=== PATIENT | female | born 1990 | race Caucasian/White ===

== ENCOUNTER 2016-04-30 13:15 | Emergency (ER) | payer BC, OTHER ==
[~2016-04-30] VITALS: Ht 167.6 cm; Wt 123.1 kg
[~2016-04-30 13:15] MED LIST: NAPR-1169 PO
[2016-04-30 13:17] VITALS: TEMP 36.6; Ht 167.6 cm; Wt 123.1 kg
[2016-04-30 14:08] VITALS: O2SAT 98
[2016-04-30] MEDS ORDERED: LABETALOL HCL IV 5 MG/ML 20ML IV STA (14:12)
[2016-04-30] MEDS ORDERED: blood pressure med PO (14:19)
[2016-04-30 14:28] LABS: CALCIUM 9.2 mg/dl (8.5-10.1); CREATININE 0.78 mg/dl (0.60-1.20); POTASSIUM 3.1 mmol/L (3.5-5.1)
[2016-04-30 14:30] LABS: BASO % 0.2 %; BASO ABS # 0.03 K/uL (0-0.2); COMPLETE YES; HEMATOCRIT 38.9 % (37-47); IG% 0.5 %; LYMPH % 18.6 %; LYMPH ABS # 3.13 K/uL (1.2-3.4); MEAN CELL VOLUME 77.3 fL (80-100); MEAN CORPUSCULAR HEMOGLOBIN 26.2 pg (25-34); MEAN CORPUSCULAR HGB CONC 33.9 g/dl (32-36); MEAN PLATELET VOLUME 10.3 fL (7.4-10.4); MONO % 6.4 %; NEUT % 74.3 %; PARTIAL THROMBOPLASTIN RATIO 0.9; PLATELET COUNT 329 K/uL (130-400); PROTHROMBIN TIME (PATIENT) 10.8 SECONDS (9.0-12.0); RED BLOOD COUNT 5.03 M/uL (4.2-5.4); WHITE BLOOD COUNT 16.82 K/uL (4.8-10.8)
--- NOTE | 2016-04-30 14:59 | DIAGNOSTIC IMAGING REPORT ---
HEAD CT NONCONTRAST CT DOSE: 537.48 mGy.cm HISTORY: Mental status change CEJA eval for bleed TECHNIQUE: Multiaxial CT images of the head were performed without the use of intravenous contrast. Comparison: None. Findings: The paranasal sinuses and mastoid air cells are clear. The calvarium and skull base are intact. The ventricles and sulci are within normal limits. There is no mass, hematoma, midline shift, or acute infarct. Impression: No acute intracranial abnormality. Electronically signed by: Luis Monson M.D. 04/30/2016 2:57 PM Dictated Date/Time: 04/30/2016 2:57 PM
[2016-04-30 15:08] LABS: ALKALINE PHOSPHATASE 79 U/L (45-117); ALT/SGPT 38 U/L (12-78); AST/SGOT 14 U/L (15-37); THYROID STIMULATING HORMONE 0.249 uIu/ml (0.300-4.500)
--- NOTE | 2016-04-30 15:15 | DIAGNOSTIC IMAGING REPORT ---
CHEST 2 VIEWS ROUTINE CLINICAL HISTORY: CP eval for pnea dyspnea COMPARISON STUDY: None FINDINGS: The bones soft tissues and hemidiaphragms are normal. The cardiomediastinal silhouette is normal. The lungs are clear. The pulmonary vasculature is normal. IMPRESSION: Negative chest. Electronically signed by: Luis Monson M.D. 04/30/2016 3:14 PM Dictated Date/Time: 04/30/2016 3:13 PM
[2016-04-30 16:13] VITALS: BP 174/99; PULSE 76; O2SAT 98
--- NOTE | 2016-04-30 17:30 | EMERGENCY ROOM VISIT NOTE ---
History Report prepared by Garry: Anthony Zuniga Under the Supervision of: Dr. Chema Sage M.D. First contact with patient: 14:01 Chief Complaint: HYPERTENSION Stated Complaint: VERY HIGH BLOOD PRESSURE History of Present Illness The patient is a 25 year old female who presents to the Emergency Room with complaints of persistent hypertension that was detected 4 days ago. She went to see her primary care physician 4 days ago due to cold symptoms that she had been having for over a month. Prior to this she states that she has not really seen a doctor for a long time. The patient was told that her blood pressure was extremely high, and that she should go to ER, but the patient was feeling fine so she decided to wait. She was put on Prednisone and an antibiotic for the cold symptoms and was started on 50 mg of a blood pressure medication. The patient's cold symptoms have gotten better. She says her blood pressure has been elevated in the past during routine checkups. The patient's a month ago from cancer, so she is not sure if it is stress related. The patient has been having intermittent chest pain, which started today. The episodes last around a minute, and the pain is sharp and stabbing. She had chest pain at work today, and her blood pressure was elevated. The patient also gets headaches, but she has had these intermittently for 2 years. Her headache today is not different from her prior headaches. She additionally has had intermittent palpitations for many years, and had to get an ultrasound of her heart years ago , which was normal. She plans to have blood tests done in a couple week. She is not on control, but denies any chance of . She denies abdominal pain, urinary problems, or swelling or pain to her legs. Source of History: patient Onset: 4 days ago Position: other (global - hypertension) Symptom Intensity: over 200 systolic Quality: other (elevated blood pressure) Timing: other (persistent) Modifying Factors (Relieving): other (blood pressure medicine) Associated Symptoms: + chest pain, + headache, No abdominal pain, No urinary symptoms Note: Associated symptoms: Denies any swelling or pain to legs. Did have cold symptoms for over a month, which are getting better. Review of Systems See HPI for pertinent positives & negatives. A total of 10 systems reviewed and were otherwise negative. Past Medical & Surgical Medical Problems: (1) Chronic headaches (2) Heart palpitations Family History No pertinent family history Social History Smoking Status: Never Smoker Drug Use: none Marital Status: Occupation Status: employed Current/Historical Medications Scheduled [blood pressure med], Unknown Dose PO DAILY Allergies Coded Allergies: Sulfa Drugs (Unverified Allergy, Mild, 01/11/11) Sulfamethoxazole (Unverified Allergy, Mild, 01/11/11) Trimethoprim (Unverified Allergy, Mild, 01/11/11) Physical Exam Vital Signs Date Time Temp Pulse Resp B/P Pulse Ox O2 Delivery O2 Flow Rate FiO2 04/30/16 16:13 76 20 174/99 98 04/30/16 15:13 80 16 163/87 04/30/16 14:32 74 16 158/88 04/30/16 14:08 98 Room Air 04/30/16 13:55 85 04/30/16 13:17 36.6 82 20 208/113 99 Room Air Physical Exam Constitutional: Vital signs reviewed. Eyes: Pupils are equal round reactive to light. Conjunctiva are noninjected. ENT: Pharynx is clear without erythema or exudate. Mucous membranes are moist. Neck supple without meningeal signs. Respiratory: Clear to auscultation bilaterally. Breath sounds are equal bilaterally. Cardiovascular: Regular rate and rhythm. No rubs or gallops. GI: Soft, nondistended and nontender. Bowel sounds are present. Musculoskeletal: No peripheral edema. No lower extremity tenderness. Integumentary: No cyanosis. Neurological: The patient is awake and alert. Cranial nerves II-XII are intact. Motor is 5 out of 5 all extremities. Sensation is intact to light touch all extremities. Normal speech. No pronator drift. Psychiatric: Normal affect. Medical Decision & Procedures ER Provider Diagnostic Interpretation: Radiology results as stated below per my review and the radiologist's interpretation: HEAD CT NONCONTRAST CT DOSE: 537.48 mGy.cm HISTORY: Mental status change CEJA eval for bleed TECHNIQUE: Multiaxial CT images of the head were performed without the use of intravenous contrast. Comparison: None. Findings: The paranasal sinuses and mastoid air cells are clear. The calvarium and skull base are intact. The ventricles and sulci are within normal limits. There is no mass, hematoma, midline shift, or acute infarct. Impression: No acute intracranial abnormality. Electronically signed by: Luis Monson M.D. 04/30/2016 2:57 PM Dictated Date/Time: 04/30/2016 2:57 PM CHEST 2 VIEWS ROUTINE CLINICAL HISTORY: CP eval for pnea dyspnea COMPARISON STUDY: None FINDINGS: The bones soft tissues and hemidiaphragms are normal. The cardiomediastinal silhouette is normal. The lungs are clear. The pulmonary vasculature is normal. IMPRESSION: Negative chest. Electronically signed by: Luis Monson M.D. 04/30/2016 3:14 PM Dictated Date/Time: 04/30/2016 3:13 PM Laboratory Results 04/30/16 14:00 Red Blood Count 5.03, Mean Corpuscular Volume 77.3, Mean Corpuscular Hemoglobin 26.2, Mean Corpuscular Hemoglobin Concent 33.9, Mean Platelet Volume 10.3, Neutrophils (%) (Auto) 74.3, Lymphocytes (%) (Auto) 18.6, Monocytes (%) (Auto) 6.4, Eosinophils (%) (Auto) 0.0, Basophils (%) (Auto) 0.2, Neutrophils # (Auto) 12.49, Lymphocytes # (Auto) 3.13, Monocytes # (Auto) 1.08, Eosinophils # (Auto) 0.00, Basophils # (Auto) 0.03 04/30/16 14:00 Test 04/30/16 14:00 04/30/16 14:25 04/30/16 15:45 White Blood Count 16.82 K/uL (4.8-10.8) Red Blood Count 5.03 M/uL (4.2-5.4) Hemoglobin 13.2 g/dL (12.0-16.0) Hematocrit 38.9 % (37-47) Mean Corpuscular Volume 77.3 fL (80-100) Mean Corpuscular Hemoglobin 26.2 pg (25-34) Mean Corpuscular Hemoglobin Concent 33.9 g/dl (32-36) Platelet Count 329 K/uL (130-400) Mean Platelet Volume 10.3 fL (7.4-10.4) Neutrophils (%) (Auto) 74.3 % Lymphocytes (%) (Auto) 18.6 % Monocytes (%) (Auto) 6.4 % Eosinophils (%) (Auto) 0.0 % Basophils (%) (Auto) 0.2 % Neutrophils # (Auto) 12.49 K/uL (1.4-6.5) Lymphocytes # (Auto) 3.13 K/uL (1.2-3.4) Monocytes # (Auto) 1.08 K/uL (0.11-0.59) Eosinophils # (Auto) 0.00 K/uL (0-0.5) Basophils # (Auto) 0.03 K/uL (0-0.2) RDW Standard Deviation 40.6 fL (36.4-46.3) RDW Coefficient of Variation 14.3 % (11.5-14.5) Immature Granulocyte % (Auto) 0.5 % Immature Granulocyte # (Auto) 0.09 K/uL (0.00-0.02) Prothrombin Time 10.8 SECONDS (9.0-12.0) Prothromb Time International Ratio 1.0 (0.9-1.1) Activated Partial Thromboplast Time 24.6 SECONDS (21.0-31.0) Partial Thromboplastin Ratio 0.9 Anion Gap 13.0 mmol/L (3-11) Est Creatinine Clear Calc Drug Dose 145.0 ml/min Estimated GFR () 120.8 Estimated GFR (Non- 104.2 BUN/Creatinine Ratio 20.0 (10-20) Calcium Level 9.2 mg/dl (8.5-10.1) Total Bilirubin 0.3 mg/dl (0.2-1) Direct Bilirubin < 0.1 mg/dl (0-0.2) Aspartate Amino Transf (AST/SGOT) 14 U/L (15-37) Alanine Aminotransferase (ALT/SGPT) 38 U/L (12-78) Alkaline Phosphatase 79 U/L (45-117) Total Protein 7.9 gm/dl (6.4-8.2) Albumin 3.9 gm/dl (3.4-5.0) Thyroid Stimulating Hormone (TSH) 0.249 uIu/ml (0.300-4.500) Free Thyroxine 1.16 ng/dl (0.80-1.60) Bedside D-Dimer 166 ng/mlFEU (0-450) Bedside Troponin I 0.000 ng/ml (0-0.045) Laboratory results as reviewed by me. Medications Administered Medications (Trade) Dose Ordered Sig/Kaitlynn Route Start Time Stop Time Status Last Admin Dose Admin Labetalol HCl (Normodyne IV) 10 mg NOW STAT IV 04/30/16 14:12 04/30/16 14:14 DC 04/30/16 14:23 10 MG ECG Indication: chest pain Rate (beats per minute): 78 Rhythm: normal sinus Findings: no ectopy, other (no ST elevations) ED Course 1403: The patient was evaluated in room C8. A complete history and physical exam was performed. 1412: Ordered Normodyne IV 10 mg IV. 1525: I reevaluated the patient and her blood pressure is 163/87. She is not having any chest pain. I discussed the blood test with her as well as the imaging studies. 1600: I reevaluated the patient and she had a second troponin of 0. She has no chest discomfort. I reviewed the discharge instructions with her. The patient verbally expressed understanding and agreement of the treatment plan. The patient will be discharged. Medical Decision This is a 25-year-old female presents with elevated blood pressure, headache and chest pain. Differential diagnoses considered include hypertension, end organ damage, intracranial hemorrhage, intracranial mass, pulmonary embolism. I did perform a limited focused review of portions of the patient's old chart on the electronic medical record. The patient has had no recent pertinent visits to this hospital. I did evaluate the patient as noted above. She is neurologically intact. She has had a headache for over 2 years. She also complains of intermittent fleeting chest pain today along with elevated blood pressures. She was just recently started on an antihypertensive by her doctor. IV access was established. The patient was placed on a continuous quality assurance monitor. I did treat patient with labetalol 10 mg IV. I did order and personally review the patient's 12-lead EKG and chest x-ray as described above. Her twelve-lead EKG does not show any signs of pericarditis or acute ischemia. Her chest x-ray does not show pneumothorax, widening of her mediastinum or any acute abnormality. I did order and review the patient's blood work as noted in the electronic medical record. Troponin is negative 2. D-dimer is not elevated. Renal function is unremarkable. She has hypokalemia. Her white blood cell count is elevated but she is on prednisone. She states that her cold symptoms are improving. I did order a CT of the head. I did review the images myself as well as the radiology report as described above. There is no evidence of acute pathology. I did discuss the test results with the patient. She is not having any chest pain. Her blood pressure is improved. I did recommend she follow up with her doctor later this week. She was discharged in good condition. Impression Primary Impression: Poorly-controlled hypertension Additional Impressions: Chronic headache Acute chest pain Hypokalemia Scribe Attestation The scribe's documentation has been prepared under my direct and personally reviewed by me in its entirety. I confirm that the note above accurately reflects all work, treatment, procedures, and medical decision making performed by me. Departure Information Dispostion Home / Self-Care Referrals No Doctor, Assigned (PCP) Tri Kaur, C.R.N.P. Forms HOME CARE DOCUMENTATION FORM, IMPORTANT VISIT INFORMATION, WORK / SCHOOL INSTRUCTIONS Patient Instructions ED Chest Pain Atypical Unkn Cause, ED Hypertension Conf Out Of Control, Headache Pain, Hypokalemia Mi, [facility] Additional Instructions You have been examined and treated today on an emergency basis only. This is not a substitute for, or an effort to provide, complete comprehensive medical care. It is impossible to recognize and treat all injuries or illnesses in a single emergency department visit. It is therefore important that you follow up closely with your physician within 48-72 hours. Call as soon as possible for an appointment. Return for worsening symptoms or if you develop fever, vomiting , difficulty breathing, profuse sweating, feeling like her to pass out or any other concerning symptoms. Problem Qualifiers Additional Impressions: Chronic headache Headache type: unspecified
== END 2016-04-30 16:15 | disposition home or self-care (01) ==
LOC: C.EDB 13:16 → C.EDC 16:15
DX: I10 Essential (primary) hypertension (principal); R51 Headache; R07.9 Chest pain, unspecified; E87.6 Hypokalemia

== ENCOUNTER → 2016-05-10 | Outpatient (CLI) | payer BC, OTHER ==
[~2016-05-10] MED LIST changes: -NAPR-1169 PO; +blood pressure med PO
[2016-05-10 17:51] LABS: BASO % 0.5 %; BASO ABS # 0.07 K/uL (0-0.2); COMPLETE YES; EOS % 0.8 %; HEMATOCRIT 41.2 % (37-47); IG% 0.2 %; LYMPH % 29.5 %; LYMPH ABS # 3.97 K/uL (1.2-3.4); MEAN CELL VOLUME 80.5 fL (80-100); MEAN CORPUSCULAR HEMOGLOBIN 26.8 pg (25-34); MEAN CORPUSCULAR HGB CONC 33.3 g/dl (32-36); MEAN PLATELET VOLUME 10.5 fL (7.4-10.4); MONO % 5.9 %; NEUT % 63.1 %; PLATELET COUNT 302 K/uL (130-400); RED BLOOD COUNT 5.12 M/uL (4.2-5.4); WHITE BLOOD COUNT 13.48 K/uL (4.8-10.8)
[2016-05-10 17:56] LABS: BLOOD UREA NITROGEN 16 mg/dl (7-18); BUN/CREATININE RATIO 17.7 (10-20); CALCIUM 9.4 mg/dl (8.5-10.1); CARBON DIOXIDE 32 mmol/L (21-32); CHLORIDE 105 mmol/L (98-107); CREATININE 0.88 mg/dl (0.60-1.20); GLUCOSE 102 mg/dl (70-99); POTASSIUM 3.5 mmol/L (3.5-5.1); SODIUM 143 mmol/L (136-145)
== END | disposition home or self-care (01) ==
LOC: C.LABBFT 10:33
PROVIDERS: ATTEND Internal Medicine
DX: Z01.419 Encounter for gynecological examination (general) (routine) without abnormal findings (principal); D72.829 Elevated white blood cell count, unspecified

== ENCOUNTER → 2016-05-26 | Outpatient (CLI) | payer BC ==
--- NOTE | 2016-05-26 11:14 | DIAGNOSTIC IMAGING REPORT ---
ULTRASOUND KIDNEYS AND BLADDER CLINICAL HISTORY: Hypertension. COMPARISON STUDY: No priors. TECHNIQUE: Real-time, grayscale, and color flow sonography of the kidneys and bladder is performed. Images are reviewed in the transverse and longitudinal planes. FINDINGS: Kidneys: The kidneys are normal in size and echotexture. The right kidney measures 12.1 cm in length and the left kidney measures 12.7 cm in length. There is no hydronephrosis. No shadowing renal calculi are identified. There is no sonographic evidence of contour deforming renal mass lesion. No perinephric fluid is identified. Bladder: The partially decompressed bladder is grossly normal in appearance. Bilateral ureteral jets were seen. Upper abdomen: Survey images of the liver demonstrates steatosis. IMPRESSION: 1. Unremarkable sonographic assessment of the kidneys and bladder. 2. Hepatic steatosis. Electronically signed by: Ivan Cerrato M.D. 05/26/2016 11:13 AM Dictated Date/Time: 05/26/2016 11:12 AM
--- NOTE | 2016-05-26 11:18 | DIAGNOSTIC IMAGING REPORT ---
DOPPLER ULTRASOUND OF THE RENAL ARTERIES CLINICAL HISTORY: Hypertension. COMPARISON STUDY: No previous studies for comparison. TECHNIQUE: Color and duplex Doppler sonography of the abdominal aorta and both renal arteries was performed. FINDINGS: The peak systolic velocity within the abdominal aorta was 98 cm/s. The peak systolic velocity within the right renal artery was 122 cm/s. A peak systolic velocity of 231 cm/s was noted within the proximal left renal artery for a renal aortic ratio of 2.4. Segmental waveforms within each kidney were normal. Both renal veins were patent. IMPRESSION: Mildly elevated velocity within the proximal left renal artery. The sonographic findings do not meet criteria for renal artery stenosis however a CTA of the renal arteries could be obtained if persistent clinical concern for renal artery stenosis. Electronically signed by: Roddy Velasco M.D. 05/26/2016 11:17 AM Dictated Date/Time: 05/26/2016 11:10 AM
== END | disposition home or self-care (01) ==
LOC: C.ULTR 10:09
PROVIDERS: ATTEND Nurse Practitioner
DX: I10 Essential (primary) hypertension (principal); K76.0 Fatty (change of) liver, not elsewhere classified

== ENCOUNTER → 2016-06-09 | Outpatient (CLI) | payer BC ==
[2016-06-09 12:21] LABS: BASO % 0.9 %; BASO ABS # 0.07 K/uL (0-0.2); COMPLETE YES; HEMATOCRIT 39.4 % (37-47); IG% 0.1 %; LYMPH % 35.4 %; LYMPH ABS # 2.86 K/uL (1.2-3.4); MEAN CELL VOLUME 77.1 fL (80-100); MEAN CORPUSCULAR HEMOGLOBIN 26.8 pg (25-34); MEAN CORPUSCULAR HGB CONC 34.8 g/dl (32-36); MEAN PLATELET VOLUME 10.6 fL (7.4-10.4); MONO % 5.1 %; NEUT % 57.5 %; PLATELET COUNT 260 K/uL (130-400); RED BLOOD COUNT 5.11 M/uL (4.2-5.4); WHITE BLOOD COUNT 8.08 K/uL (4.8-10.8)
[2016-06-09 12:28] LABS: URINE APPEARANCE CLOUDY (CLEAR); URINE BILIRUBIN NEG (NEG); URINE COLOR YELLOW; URINE EPITHELIAL CELL AUTO >30 /lpf (0-5); URINE NITRITE NEG (NEG); URINE PH 5.5 (4.5-7.5); URINE SPECIFIC GRAVITY 1.023 (1.000-1.030); UROBILINOGEN NEG (NEG)
[2016-06-09 12:39] LABS: MANUAL MICROSCOPIC REQUIRED? NO; REVIEW REQ? NO
== END | disposition home or self-care (01) ==
LOC: C.LABBFT 10:12
PROVIDERS: ATTEND Nurse Practitioner
DX: R61 Generalized hyperhidrosis (principal); I10 Essential (primary) hypertension; D72.829 Elevated white blood cell count, unspecified

== ENCOUNTER → 2016-08-08 | Outpatient (CLI) | payer BC ==
[2016-08-08 17:56] LABS: URINE APPEARANCE CLEAR (CLEAR); URINE BILIRUBIN NEG (NEG); URINE COLOR YELLOW; URINE NITRITE NEG (NEG); URINE PH 6.5 (4.5-7.5); URINE SPECIFIC GRAVITY 1.024 (1.000-1.030); UROBILINOGEN NEG (NEG)
[2016-08-08 17:57] LABS: MANUAL MICROSCOPIC REQUIRED? NO; REVIEW REQ? NO
== END | disposition home or self-care (01) ==
LOC: C.LABBFT 11:53
PROVIDERS: ATTEND Nurse Practitioner
DX: R30.0 Dysuria (principal)

== ENCOUNTER → 2016-10-05 | Outpatient (CLI) | payer BC ==
[2016-10-05 18:07] LABS: BLOOD UREA NITROGEN 14 mg/dl (7-18); CALCIUM 9.5 mg/dl (8.5-10.1); CARBON DIOXIDE 27 mmol/L (21-32); CHLORIDE 105 mmol/L (98-107); CREATININE 0.83 mg/dl (0.60-1.20); GLUCOSE 100 mg/dl (70-99); POTASSIUM 3.2 mmol/L (3.5-5.1); SODIUM 140 mmol/L (136-145)
== END | disposition home or self-care (01) ==
LOC: C.LABBFT 10:40
PROVIDERS: ATTEND Nurse Practitioner
DX: I10 Essential (primary) hypertension (principal)

== ENCOUNTER → 2016-10-17 | Outpatient (CLI) | payer BC ==
[2016-10-17 17:40] LABS: BLOOD UREA NITROGEN 12 mg/dl (7-18); BUN/CREATININE RATIO 12.1 (10-20); CALCIUM 9.4 mg/dl (8.5-10.1); CARBON DIOXIDE 27 mmol/L (21-32); CHLORIDE 106 mmol/L (98-107); GLUCOSE 95 mg/dl (70-99); POTASSIUM 3.4 mmol/L (3.5-5.1); SODIUM 139 mmol/L (136-145)
== END | disposition home or self-care (01) ==
LOC: C.LABBFT 12:54
PROVIDERS: ATTEND Nurse Practitioner
DX: R25.2 Cramp and spasm (principal)

== ENCOUNTER → 2016-11-02 | Outpatient (CLI) | payer BC ==
[2016-11-02 17:13] LABS: BLOOD UREA NITROGEN 13 mg/dl (7-18); BUN/CREATININE RATIO 17.5 (10-20); CALCIUM 9.3 mg/dl (8.5-10.1); CARBON DIOXIDE 28 mmol/L (21-32); CHLORIDE 103 mmol/L (98-107); CREATININE 0.76 mg/dl (0.60-1.20); GLUCOSE 112 mg/dl (70-99); POTASSIUM 3.4 mmol/L (3.5-5.1); SODIUM 139 mmol/L (136-145)
== END | disposition home or self-care (01) ==
LOC: C.LABBFT 15:28
PROVIDERS: ATTEND Physician Assistant Medical
DX: E87.6 Hypokalemia (principal)

== ENCOUNTER → 2016-11-23 | Outpatient (CLI) | payer BC ==
--- NOTE | 2016-11-23 14:29 | DIAGNOSTIC IMAGING REPORT ---
L RIBS UNILATERAL WITH PA CHEST CLINICAL HISTORY: 25 years-old Female presenting with R07.81 Rib pain on left [id number]. TECHNIQUE: Frontal and oblique views of the left ribs and PA view of the chest were obtained. COMPARISON: Chest x-ray from 04/30/2016. FINDINGS: Cardiac mediastinal silhouette normal. Lungs and pleural spaces clear. No displaced left rib fracture Upper abdomen normal. IMPRESSION: No evidence of rib fracture. No acute cardiopulmonary disease. Electronically signed by: Nicolas Malone M.D. 11/23/2016 2:27 PM Dictated Date/Time: 11/23/2016 2:26 PM
== END | disposition home or self-care (01) ==
LOC: C.RAD 13:56
PROVIDERS: ATTEND Nurse Practitioner
DX: R07.81 Pleurodynia (principal)

== ENCOUNTER → 2016-11-23 | Outpatient (CLI) | payer BC ==
[2016-11-23 12:08] LABS: BASO % 0.8 %; BASO ABS # 0.07 K/uL (0-0.2); COMPLETE YES; EOS % 1.2 %; HEMATOCRIT 39.2 % (37-47); IG% 0.2 %; LYMPH ABS # 2.82 K/uL (1.2-3.4); MEAN CELL VOLUME 81.5 fL (80-100); MEAN CORPUSCULAR HEMOGLOBIN 27.9 pg (25-34); MEAN CORPUSCULAR HGB CONC 34.2 g/dl (32-36); MEAN PLATELET VOLUME 10.6 fL (7.4-10.4); MONO % 4.1 %; NEUT % 62.7 %; PLATELET COUNT 254 K/uL (130-400); RED BLOOD COUNT 4.81 M/uL (4.2-5.4); WHITE BLOOD COUNT 9.09 K/uL (4.8-10.8)
[2016-11-23 12:15] LABS: BLOOD UREA NITROGEN 12 mg/dl (7-18); BUN/CREATININE RATIO 15.2 (10-20); CALCIUM 9.6 mg/dl (8.5-10.1); CARBON DIOXIDE 26 mmol/L (21-32); CHLORIDE 106 mmol/L (98-107); GLUCOSE 125 mg/dl (70-99); POTASSIUM 3.8 mmol/L (3.5-5.1); SODIUM 140 mmol/L (136-145)
== END | disposition home or self-care (01) ==
LOC: C.LABBFT 08:45
PROVIDERS: ATTEND Nurse Practitioner
DX: E87.6 Hypokalemia (principal); I10 Essential (primary) hypertension; R07.81 Pleurodynia

== ENCOUNTER → 2016-12-12 | Outpatient (CLI) | payer BC ==
[2016-12-12 18:03] LABS: BLOOD UREA NITROGEN 15 mg/dl (7-18); BUN/CREATININE RATIO 17.9 (10-20); CALCIUM 9.9 mg/dl (8.5-10.1); CARBON DIOXIDE 29 mmol/L (21-32); CHLORIDE 106 mmol/L (98-107); CREATININE 0.84 mg/dl (0.60-1.20); GLUCOSE 120 mg/dl (70-99); POTASSIUM 3.8 mmol/L (3.5-5.1); SODIUM 141 mmol/L (136-145)
== END | disposition home or self-care (01) ==
LOC: C.LABBFT 15:29
PROVIDERS: ATTEND Nurse Practitioner
DX: E87.6 Hypokalemia (principal)

== ENCOUNTER → 2017-01-24 | Outpatient (CLI) | payer BC ==
[2017-01-27 12:33] LABS: VANILMANDELIC ACID (VMA) 3.8 mg/24 h (<=6.0)
== END | disposition home or self-care (01) ==
LOC: C.LAB1850 09:52
PROVIDERS: ATTEND Internal Medicine Nephrology
DX: I10 Essential (primary) hypertension (principal)

== ENCOUNTER → 2017-01-24 | Outpatient (CLI) | payer BC ==
[~2017-01-24] MED LIST changes: +OPTIRAY 320 IV PRN
--- NOTE | 2017-01-24 11:10 | DIAGNOSTIC IMAGING REPORT ---
ABDOMEN AND PELVIS CTA HISTORY: I10 [id number] History of stenosis of renal artery TECHNIQUE: Multiaxial CT images of the abdomen and pelvis were performed following the use of intravenous contrast about the major arterial structures. Maximal intensity projection images are also obtained. COMPARISON STUDY: Duplex renal ultrasound 05/26/2016. FINDINGS: Normal caliber abdominal aorta with no evidence for dissection. The iliac and common femoral arteries are widely patent. The celiac artery and its major branches, superior mesenteric artery, and inferior mesenteric artery are widely patent. There are 2 right and a single left renal artery. The bilateral renal arteries are widely patent. The lung bases are clear. No fractures within the visualized osseous structures. Hepatic steatosis. The gallbladder, spleen, adrenal glands, pancreas, and kidneys are unremarkable. No hydronephrosis. No retroperitoneal lymphadenopathy. The bladder, uterus, and ovaries are unremarkable. No bowel wall thickening or obstruction. Normal appendix. IMPRESSION: 1. The renal arteries are widely patent. 2. Hepatic steatosis. Electronically signed by: Skyler Patel M.D. 01/24/2017 11:09 AM Dictated Date/Time: 01/24/2017 10:55 AM
== END | disposition home or self-care (01) ==
LOC: C.CTS 10:11
PROVIDERS: ATTEND Internal Medicine Nephrology
DX: I10 Essential (primary) hypertension (principal); Z86.79 Personal history of other diseases of the circulatory system; K76.0 Fatty (change of) liver, not elsewhere classified

== ENCOUNTER → 2017-04-30 | Outpatient (CLI) | payer BC ==
[~2017-04-30] MED LIST changes: -OPTIRAY 320 IV PRN
== END | disposition home or self-care (01) ==
LOC: C.PAPS 13:04
PROVIDERS: ATTEND Nurse Practitioner
DX: Z01.419 Encounter for gynecological examination (general) (routine) without abnormal findings (principal)

== ENCOUNTER 2020-02-09 07:17 | Inpatient (IN) ==
[2020-02-09] MEDS ORDERED: OXYTOCIN 30 UNITS/500 ML BAG IV PRN ×2 (07:27→07:31)
[2020-02-09 07:51] LABS: Hematocrit (blood only) 32.2 % (37-47); Hemoglobin 10.5 g/dL (12.0-16.0); Mean Corpuscular Hemoglobin 24.2 pg (25-34); Mean Corpuscular Hgb Conc 32.6 g/dL (32-36); Mean Corpuscular Volume 74.4 fL (80-100); Mean Platelet Volume 9.2 fL (7.4-10.4); Platelet Count 250 K/uL (130-400); RDW Coefficient of Variation 16.1 % (11.5-14.5); RDW Standard Deviation 44.7 fL (36.4-46.3); Red Blood Count 4.33 M/uL (4.2-5.4); White Blood Count 11.84 K/uL (4.8-10.8)
[2020-02-09] MEDS: LACTATED RINGER'S 1,000 ML IV PRN ×3 (08:30→18:44)
--- NOTE | 2020-02-09 10:28 | History & Physical Report ---
Date of Service February 09, 2020 Assessment & Plan (1) Chronic hypertension affecting : Admit for IOL. Plan for pitocin. Discussed plans with patient, questions answered. (2) Type 2 diabetes mellitus affecting , antepartum: (3) Supervision of high-risk : Admission and Anticipated Discharge Date Admission Date: February 09, 2020 History of Present Illness Chief Complaint: IOL Primary Care Provider: LAURA Solorzano 29yo @ 38 03/04, IOL for cHTN - no meds. Also with PGDM, on insulin. Rec'd dias bulb last night. Small amount of vaginal bleeding, bulb fell out this AM. No ctx, no leaking fluid. + movement. complications/plans: DM Protocol *Baby ASA dailly, start 12-28wks, continue unil del *Ophthalmology consult - Report in [employer] from Mar 2018 *Dietary consult *Qmonthly urine cultures * Echo 22-24wks - report received, full clinic note pending *Twice weekly NST's @32 or 34wks *Serial Growth US starting 28wks *Baseline 24hr Urine and Q trimester - 28wk 24hr urine 340, unable to find b aseline *EKG (Cardio [id number]) - had EKG 09/27/18 in ED CHTN *Baby ASA daily start 12-28 wks, continue until delivery *wkly NST's @32wks and twice wkly @36 wks *Serial Growth US @ 24w (doppler only if abnml) *Baseline 24hr urine (additional PRN) - 28wk 24hr urine 340, unable to find baseline - pt aware, will continue to monitor *weekly ROSA's @ 32wk6D *Deliver [id number] 02/08 at 38 1/7 with B Obesity (BMI 41.5) *BMI 35 or >At start of preg, growth US @ 32wk Hx HSV *Valtrex @ 36 wks echo on 11/18/19-Dr. Carpenter recommending echo Flu shot given 12/02/19 SB Allergies Allergy/AdvReac Type Severity Reaction Status Date / Time sulfamethoxazole Allergy Mild Hives Verified 02/08/20 19:14 [From ] trimethoprim [From ] Allergy Hives Verified 02/08/20 19:14 Home Medications Medication Instructions Recorded Confirmed Type blood sugar diagnostic #100 ea 06/06/19 02/06/20 Rx acetone (urine) test #50 ea 07/17/19 02/06/20 Rx insulin syringe-needle U-100 0.5 #50 ea 07/29/19 02/06/20 Rx mL 31 gauge x 5/16" lancets 30 gauge #200 ea 07/29/19 02/06/20 Rx acetone (urine) test [Ketone Urine 02/08/20 02/08/20 History Test] aspirin [Low-Dose Aspirin] 81 mg PO DAILY 02/09/20 02/09/20 History prenat.vits,zarina,iej-fkfh-argzh 1 tab PO DAILY 02/09/20 02/09/20 History [ Vitamin] valacyclovir [Valtrex] 500 mg PO DAILY 02/09/20 02/09/20 History Patient History Medical History Anxiety Chronic headaches Esophageal reflux Galactorrhea Heart palpitations HSV (herpes simplex virus) anogenital infection Hx of varicella Hypokalemia Pituitary abnormality Possible 6 mm left tumor Poorly-controlled hypertension Spontaneous in first trimester Subclinical hypothyroidism Type 2 diabetes mellitus UTI (urinary tract infection) Yeast infection Surgical History S/P colonoscopy S/P wisdom tooth extraction Family History Family/Other Depression Obesity Stroke Multiple gestation Mother Hypertension Diabetes Father Diabetes Grandmother (Maternal) Hypercholesteremia Grandmother (Paternal) Colorectal cancer Aunt Cervical cancer Denies family history of Ovarian cancer Prostate cancer Coronary heart disease Breast cancer Social History (Updated 12/25/19 @ 12:52 by Merline Bundy MA) Smoking Status: Never smoker Second Hand Exposure: Yes; Hx Alcohol Use: No Hx Substance Use: No Preferred Language: Kyrgyz Visual Impairment: No Limitations Hearing Ability: Normal [employer] Work[employer] Required: Yes Beliefs That Will Affect Care: None marital status: Single marital status details: JERMAINE Jarred Chanel (32) [phone] Current Living Situation: Significant Other Current Living Situation Comment: 2 dogs, 2 cats- pt not changing cat litter. current occupational status: unemployed and student Other Information That Helps Us Care for You: No Feels Safe at Home: Yes Safety Concerns: Feels Safe At This Time Childhood Exposure to Second-Hand Smoke: Yes caffeine: Yes during the past year weight has: remained stable Dental Care, Regularly: Yes Physical Activity Frequency Comment: walk Seatbelt Use: always Sunscreen Use: Yes Assistive Devices: None Review of Systems All systems reviewed & are unremarkable except as noted in HPI & below Physical Exam Physical Exam: FHT cat 1 toco irreg Cervix /-3 Constitutional: WD/WN, vitals as above Respiratory: normal respiratory effort, lungs clear to auscultation no respiratory distress Cardiovascular: Rate/Rhythm: regular rate and regular rhythm Gastrointestinal (Abdomen): Inspection/Auscultation: abdomen normal to inspection Percussion/Palpation: abdomen soft; abdomen nontender Gravid. No s/s chorio or abruption. Skin: no rashes, warm and dry Psychiatric: A+Ox3, euthymic affect Results & Data ([facility]) Vital Signs (Past 12 Hours) Vital Signs Temp Pulse Resp BP 02/09/20 09:58 80 162/85 H 02/09/20 09:00 83 161/86 H 02/09/20 07:50 36.8 C 87 20 157/80 H Coding Level of Care Code None Diagnoses Chronic hypertension affecting O10.919 Type 2 diabetes mellitus affecting , antepartum O24.119 Supervision of high-risk O09.90
[2020-02-09 11:32] LABS: Albumin Globulin Ratio 0.6 (0.9-2); Albumin Level 2.7 gm/dl (3.4-5.0); BUN Creatinine Ratio 13.8 (10-20); Calcium 9.3 mg/dl (8.5-10.1); Creatinine Clr Calc Pharmacy 211.6 ml/min; Est GFR (African American) 144.9; Globulin 4.3 gm/dl (2.5-4.0); Potassium 3.8 mmol/L (3.5-5.1)
[2020-02-09 11:33] LABS: Bilirubin,Total 0.3 mg/dl (0.2-1)
[2020-02-09] MEDS ORDERED: SODIUM CHLORIDE 0.9% INJ 10 ML VIAL ONE (17:54)
[2020-02-09] MEDS ORDERED: BUPIVACAINE 0.25% 30 ML VIAL ONE (17:54)
[2020-02-09] MEDS ORDERED: ePHEDrine sulfate 50 MG/ML AMP ONE (17:54)
--- NOTE | 2020-02-09 17:54 | Labor Progress Brief Note ---
Date of Service February 09, 2020 Subjective Had been comfortable with ctx throughout the afternoon, now starting to feel uncomfortable and requesting epidural. Requests epidural prior to AROM. FHT Cat 1 Retreat Q 2 SVE /-2, bulging membranes. Will get epidural. Assessment & Plan Admission and Anticipated Discharge Date Admission Date: February 09, 2020 Results & Data ([facility]) Vital Signs (Past 12 Hours) Vital Signs Temp Pulse Resp BP 02/09/20 17:16 83 172/86 H 02/09/20 16:08 37.1 C 20 02/09/20 15:58 87 176/87 H 02/09/20 15:00 88 164/88 H 02/09/20 14:05 84 160/77 H 02/09/20 13:58 85 181/86 H 02/09/20 12:58 84 178/87 H 02/09/20 11:58 81 160/90 H 02/09/20 10:58 74 171/81 H 02/09/20 09:58 80 162/85 H 02/09/20 09:00 83 161/86 H 02/09/20 08:30 36.6 C 20 02/09/20 07:50 36.8 C 87 20 157/80 H Coding Level of Care Code None
[2020-02-09] MEDS ORDERED: fentaNYL citrate 100 MCG/2 ML VIAL ONE (17:55)
[2020-02-09] MEDS ORDERED: fentaNYL 2MCG/ML ROPIVACAINE 1.25MG/ML 100 ML BAG EPI ONE (17:55)
--- NOTE | 2020-02-09 18:06 | Anesthesiology Consultation ---
Date of Service February 09, 2020 Assessment & Plan Chart Review Chart Review: Acceptable Risk for Surgery, Patient NOT seen in Pre Admission Testing and Acceptable Risk for Labor Epidural Consults Requested none ASA ASA3 Proposed Anesthesia Anesthesia Type: Labor Epidural and CSE History Height/Weight Height: 5 ft 7.5 in Weight: 131.995 kg Allergies Allergy/AdvReac Type Severity Reaction Status Date / Time sulfamethoxazole Allergy Mild Hives Verified 02/08/20 19:14 [From ] trimethoprim [From ] Allergy Hives Verified 02/08/20 19:14 Medications Home Medications Medication Instructions Recorded Confirmed Last Taken blood sugar diagnostic #100 ea 06/06/19 02/06/20 Unknown acetone (urine) test #50 ea 07/17/19 02/06/20 Unknown insulin syringe-needle U-100 0.5 #50 ea 07/29/19 02/06/20 Unknown mL 31 gauge x 5/16" lancets 30 gauge #200 ea 07/29/19 02/06/20 Unknown acetone (urine) test [Ketone Urine 02/08/20 02/08/20 Unknown Test] aspirin 81 mg PO DAILY 02/09/20 02/09/20 02/09/20 06:00 cholecalciferol (vitamin D3) 50,000 unit PO WK 02/09/20 02/09/20 02/08/20 23:00 insulin NPH isoph U-100 human 13 unit SUBCUT PM 02/09/20 02/09/20 02/08/20 23:00 [Novolin N NPH U-100 Insulin] labetalol 300 mg PO BID 02/09/20 02/09/20 02/09/20 06:00 prenat.vits,zarina,nvh-bxud-eaxaw 1 tab PO DAILY 02/09/20 02/09/20 02/08/20 23:00 [ Vitamin] valacyclovir [Valtrex] 500 mg PO DAILY 02/09/20 02/09/20 02/09/20 06:00 Active Medications Generic Name Dose Route Start Last Admin Trade Name Freq PRN Reason Stop Dose Admin Lactated Ringer's 1,000 mls @ 125 mls/hr 02/09/20 07:27 02/09/20 17:52 Lr IV 02/11/20 07:26 999 mls/hr .Q8H PRN Infusion L&D Protocol Protocol Oxytocin 30 units in 500 mls @ 17 mls/hr 02/09/20 07:31 02/09/20 17:13 Pitocin IV 02/11/20 07:30 1.02 units/hr .Q24H PRN 17 mls/hr Labor Induction/Augmentation Titration Protocol 1.02 UNITS/HR Past Medical History Medical History Anxiety Chronic headaches Esophageal reflux Galactorrhea Heart palpitations HSV (herpes simplex virus) anogenital infection Hx of varicella Hypokalemia Pituitary abnormality Possible 6 mm left tumor Poorly-controlled hypertension Spontaneous in first trimester Subclinical hypothyroidism Type 2 diabetes mellitus UTI (urinary tract infection) Yeast infection Exercise / Class Metabolic Activity III < 4 Walking/Shop/Light housework Past Family History Family History Family/Other Depression Obesity Stroke Multiple gestation Mother Hypertension Diabetes Father Diabetes Grandmother (Maternal) Hypercholesteremia Grandmother (Paternal) Colorectal cancer Aunt Cervical cancer Denies family history of Ovarian cancer Prostate cancer Coronary heart disease Breast cancer Past Surgical History Surgical History S/P colonoscopy S/P wisdom tooth extraction Past Anesthesia History No Hx of Anesthesia Complications and No Family Hx of Anesthesia Complications History of PONV No Hx of PONV and No Hx of Motion Sickness Social History Smoking Status: Never smoker Hx Alcohol Use: No Hx Substance Use: No substance use type: does not use Physical Exam Vital Signs Last Vital Signs Temp 37.1 C 02/09/20 16:08 Pulse 82 02/09/20 17:58 Resp 20 02/09/20 16:08 BP 160/89 H 02/09/20 17:58 Testing Laboratory Results 02/09/20 07:40 02/09/20 10:36 02/09/20 02/09/20 02/09/20 16:57 16:06 15:07 POC Glucose 76 79 93 02/09/20 02/09/20 02/09/20 14:07 13:01 12:04 POC Glucose 135 H 89 101 H 02/09/20 11:12 POC Glucose 80
[2020-02-09] MEDS ORDERED: diphenhydrAMINE 50 MG/ML VIAL IV PRN (19:17)
[2020-02-09] MEDS ORDERED: PROMETHAZINE HCL 25 MG in SODIUM CHLORIDE 0.9% 50 ML IV PRN (19:17)
[2020-02-09] MEDS ORDERED: NALOXONE HCL 1 MG in SODIUM CHLORIDE 0.9% 1000ML 1,000 ML IV PRN (19:17)
[2020-02-09] MEDS ORDERED: NALOXONE HCL 0.4 MG/1 ML VIAL/CARP IV PRN (19:17)
[2020-02-09] MEDS ORDERED: fentaNYL 2MCG/ML ROPIVACAINE 1.25MG/ML 100 ML BAG EPI PRN (19:17)
[2020-02-09] MEDS ORDERED: ONDANSETRON INJ 2 MG/ML 2 ML VIAL IV PRN (19:17)
[2020-02-09] MEDS ORDERED: ePHEDrine sulfate 50 MG/ML AMP IV PRN (19:17)
--- NOTE | 2020-02-09 19:45 | Labor Progress Brief Note ---
Date of Service February 09, 2020 Subjective Comfortable after epidural, willing for AROM. FHT Cat 1 [place] Q 2 SVE /-2 AROM clear fluid Assessment & Plan Admission and Anticipated Discharge Date Admission Date: February 09, 2020 Results & Data ([facility]) Vital Signs (Past 12 Hours) Vital Signs Temp Pulse Resp BP Pulse Ox 02/09/20 19:42 69 98 02/09/20 19:38 68 138/66 02/09/20 19:35 20 02/09/20 19:34 70 132/63 02/09/20 19:30 36.7 C 20 02/09/20 19:28 73 140/79 02/09/20 19:25 20 02/09/20 19:23 82 142/75 H 02/09/20 19:21 73 134/69 02/09/20 19:20 18 02/09/20 19:16 76 157/82 H 02/09/20 19:15 20 02/09/20 19:14 77 156/72 H 02/09/20 19:12 77 169/83 H 02/09/20 19:10 87 20 172/101 H 02/09/20 19:08 89 179/102 H 02/09/20 18:55 80 91 02/09/20 18:52 82 100 02/09/20 18:47 88 100 02/09/20 18:41 85 100 02/09/20 17:58 82 160/89 H 02/09/20 17:16 83 172/86 H 02/09/20 16:08 37.1 C 20 02/09/20 15:58 87 176/87 H 02/09/20 15:00 88 164/88 H 02/09/20 14:05 84 160/77 H 02/09/20 13:58 85 181/86 H 02/09/20 12:58 84 178/87 H 02/09/20 11:58 81 160/90 H 02/09/20 10:58 74 171/81 H 02/09/20 09:58 80 162/85 H 02/09/20 09:00 83 161/86 H 02/09/20 08:30 36.6 C 20 02/09/20 07:50 36.8 C 87 20 157/80 H Coding Level of Care Code None
[2020-02-09] MEDS ORDERED: LABETALOL HCL 100 MG TAB ONE (22:20)
--- NOTE | 2020-02-09 22:21 | Labor Progress Brief Note ---
Date of Service February 09, 2020 Subjective Comfortable with epidural. FHT Cat 1 [place] Q 2 SVE 5/90/-2 IUPC and FSE placed. Assessment & Plan Admission and Anticipated Discharge Date Admission Date: February 09, 2020 Results & Data ([facility]) Vital Signs (Past 12 Hours) Vital Signs Temp Pulse Resp BP Pulse Ox 02/09/20 22:18 75 163/80 H 02/09/20 22:17 83 100 02/09/20 22:16 88 174/81 H 02/09/20 22:12 83 99 02/09/20 22:07 74 98 02/09/20 22:02 79 157/74 H 99 02/09/20 21:57 82 98 02/09/20 21:52 82 98 02/09/20 21:48 75 166/80 H 02/09/20 21:47 78 100 02/09/20 21:42 80 99 02/09/20 21:37 84 99 02/09/20 21:32 77 98 02/09/20 21:31 80 162/74 H 02/09/20 21:30 36.9 C 20 02/09/20 21:27 89 99 02/09/20 21:22 71 98 02/09/20 21:17 71 98 02/09/20 21:12 70 97 02/09/20 21:07 72 95 02/09/20 21:02 71 97 02/09/20 21:01 66 141/68 H 02/09/20 21:00 20 02/09/20 20:57 70 97 02/09/20 20:52 69 97 02/09/20 20:47 68 97 02/09/20 20:45 70 150/68 H 02/09/20 20:42 70 98 02/09/20 20:37 68 97 02/09/20 20:32 71 98 02/09/20 20:30 73 18 147/78 H 02/09/20 20:27 73 99 02/09/20 20:22 66 97 02/09/20 20:17 68 97 02/09/20 20:16 66 145/68 H 02/09/20 20:12 69 97 02/09/20 20:07 66 97 02/09/20 20:02 68 146/70 H 98 02/09/20 20:00 20 02/09/20 19:57 70 97 02/09/20 19:52 79 99 02/09/20 19:47 76 98 02/09/20 19:45 71 20 146/70 H 02/09/20 19:42 69 98 02/09/20 19:38 68 138/66 02/09/20 19:35 20 02/09/20 19:34 70 132/63 02/09/20 19:30 36.7 C 20 02/09/20 19:28 73 140/79 02/09/20 19:25 20 02/09/20 19:23 82 142/75 H 02/09/20 19:21 73 134/69 02/09/20 19:20 18 02/09/20 19:16 76 157/82 H 02/09/20 19:15 20 02/09/20 19:14 77 156/72 H 02/09/20 19:12 77 169/83 H 02/09/20 19:10 87 20 172/101 H 02/09/20 19:08 89 179/102 H 02/09/20 18:55 80 91 02/09/20 18:52 82 100 02/09/20 18:47 88 100 02/09/20 18:41 85 100 02/09/20 17:58 82 160/89 H 02/09/20 17:16 83 172/86 H 02/09/20 16:08 37.1 C 20 02/09/20 15:58 87 176/87 H 02/09/20 15:00 88 164/88 H 02/09/20 14:05 84 160/77 H 02/09/20 13:58 85 181/86 H 02/09/20 12:58 84 178/87 H 02/09/20 11:58 81 160/90 H 02/09/20 10:58 74 171/81 H Coding Level of Care Code None
[2020-02-09] MEDS: LABETALOL HCL 300 MG TAB PO SCH (23:14)
[2020-02-10] MEDS: LACTATED RINGER'S 1,000 ML IV PRN ×2 (02:43→07:32)
--- NOTE | 2020-02-10 07:18 | Labor Progress Brief Note ---
Date of Service February 10, 2020 Subjective Patient is comfortable with epidural. FHT Cat 1 [place] Q 2 SVE 6//-1, cervix is anterior, head has descended into pelvis. Discussed that she has not made much cervical dilation overnight, however the head has descended much further than earlier. She is hoping to avoid if she can. Agreeable to continue changing positions, but understands that if no cervical change, she may need to proceed to . Assessment & Plan Admission and Anticipated Discharge Date Admission Date: February 09, 2020 Results & Data ([facility]) Vital Signs (Past 12 Hours) Vital Signs Temp Pulse Resp BP Pulse Ox 02/10/20 07:12 91 H 98 02/10/20 07:07 92 H 98 02/10/20 07:02 81 97 02/10/20 07:01 80 144/67 H 02/10/20 06:57 79 96 02/10/20 06:52 80 96 02/10/20 06:47 84 98 02/10/20 06:45 85 146/82 H 02/10/20 06:42 79 97 02/10/20 06:37 77 97 02/10/20 06:32 79 97 02/10/20 06:31 80 156/81 H 02/10/20 06:30 20 02/10/20 06:27 77 97 02/10/20 06:22 83 97 02/10/20 06:17 92 H 98 02/10/20 06:16 81 153/75 H 02/10/20 06:12 78 97 02/10/20 06:07 82 96 02/10/20 06:02 77 97 02/10/20 06:00 89 20 150/73 H 02/10/20 05:57 103 H 99 02/10/20 05:52 88 98 02/10/20 05:47 80 151/69 H 97 02/10/20 05:42 84 97 02/10/20 05:37 80 97 02/10/20 05:32 77 174/82 H 98 02/10/20 05:30 37.3 C 20 02/10/20 05:27 79 96 02/10/20 05:22 81 96 02/10/20 05:17 76 159/77 H 97 02/10/20 05:12 83 97 02/10/20 05:07 94 H 97 02/10/20 05:02 80 96 15 05:00 79 20 159/73 H 20 04:59 83 94 20 04:57 82 96 02/10/20 04:53 85 94 02/10/20 04:52 86 96 02/10/20 04:47 78 96 02/10/20 04:45 83 161/74 H 02/10/20 04:44 91 H 92 02/10/20 04:42 80 97 02/10/20 04:37 80 98 02/10/20 04:32 81 177/79 H 96 02/10/20 04:27 89 97 02/10/20 04:22 81 97 02/10/20 04:18 91 H 94 02/10/20 04:17 88 94 02/10/20 04:16 80 156/75 H 02/10/20 04:12 96 H 95 02/10/20 04:07 85 96 02/10/20 04:02 86 97 02/10/20 04:01 87 158/79 H 02/10/20 04:00 20 02/10/20 03:57 82 97 02/10/20 03:52 85 97 02/10/20 03:47 84 97 02/10/20 03:46 89 134/67 02/10/20 03:42 92 H 98 02/10/20 03:37 86 98 02/10/20 03:32 87 97 02/10/20 03:30 37.1 C 86 20 139/76 02/10/20 03:27 104 H 98 02/10/20 03:22 100 H 99 02/10/20 03:17 97 H 152/78 H 99 02/10/20 03:12 81 98 02/10/20 03:07 82 97 02/10/20 03:02 93 H 96 02/10/20 03:01 86 150/72 H 02/10/20 03:00 20 02/10/20 02:57 86 96 02/10/20 02:52 85 97 02/10/20 02:47 85 98 02/10/20 02:46 81 162/74 H 15 02:42 86 98 15 02:37 81 99 02/10/20 02:32 80 97 15 02:30 84 20 149/75 H 12/15/20 02:27 77 97 02/10/20 02:22 82 97 02/10/20 02:17 88 94 02/10/20 02:15 92 H 139/68 02/10/20 02:13 90 94 02/10/20 02:12 92 H 94 02/10/20 02:08 87 94 02/10/20 02:07 84 95 02/10/20 02:02 84 140/70 95 02/10/20 02:00 20 02/10/20 01:57 84 95 02/10/20 01:52 81 95 02/10/20 01:47 81 96 02/10/20 01:45 85 142/67 H 02/10/20 01:42 81 96 02/10/20 01:37 78 96 02/10/20 01:32 86 97 02/10/20 01:31 90 152/73 H 02/10/20 01:30 37.1 C 20 02/10/20 01:27 80 96 02/10/20 01:22 82 96 02/10/20 01:17 92 H 98 02/10/20 01:15 81 136/67 02/10/20 01:12 79 95 02/10/20 01:07 78 96 02/10/20 01:02 80 96 02/10/20 01:01 82 146/70 H 02/10/20 01:00 20 02/10/20 00:57 82 96 02/10/20 00:52 81 98 02/10/20 00:47 85 164/77 H 99 02/10/20 00:42 96 H 98 02/10/20 00:37 88 98 02/10/20 00:32 91 H 98 02/10/20 00:31 89 140/76 02/10/20 00:30 36.7 C 20 02/10/20 00:27 91 H 98 02/10/20 00:22 88 97 02/10/20 00:17 92 H 98 02/10/20 00:16 86 146/69 H 02/10/20 00:12 83 96 02/10/20 00:07 85 97 02/10/20 00:05 94 H 93 02/10/20 00:02 83 97 02/10/20 00:00 86 20 138/67 02/09/20 23:57 88 96 12/14/20 23:52 85 96 02/09/20 23:47 84 96 02/09/20 23:46 85 134/65 02/09/20 23:42 84 96 02/09/20 23:37 84 97 02/09/20 23:32 86 98 02/09/20 23:31 88 131/67 02/09/20 23:30 20 02/09/20 23:27 86 97 02/09/20 23:22 79 96 02/09/20 23:17 78 97 02/09/20 23:15 81 136/66 02/09/20 23:12 86 96 02/09/20 23:07 84 98 02/09/20 23:02 81 98 02/09/20 23:00 36.9 C 81 20 143/67 H 02/09/20 22:57 86 96 02/09/20 22:52 78 98 02/09/20 22:47 76 98 02/09/20 22:46 76 153/77 H 02/09/20 22:42 80 99 02/09/20 22:37 76 99 02/09/20 22:32 80 98 02/09/20 22:31 84 169/81 H 02/09/20 22:30 18 02/09/20 22:27 90 98 02/09/20 22:22 86 99 02/09/20 22:18 75 163/80 H 02/09/20 22:17 83 100 02/09/20 22:16 88 174/81 H 02/09/20 22:12 83 99 02/09/20 22:07 74 98 02/09/20 22:02 79 157/74 H 99 02/09/20 22:00 20 02/09/20 21:57 82 98 02/09/20 21:52 82 98 02/09/20 21:48 75 166/80 H 02/09/20 21:47 78 100 02/09/20 21:42 80 99 02/09/20 21:37 84 99 02/09/20 21:32 77 98 02/09/20 21:31 80 162/74 H 02/09/20 21:30 36.9 C 20 02/09/20 21:27 89 99 02/09/20 21:22 71 98 02/09/20 21:17 71 98 02/09/20 21:12 70 97 02/09/20 21:07 72 95 02/09/20 21:02 71 97 02/09/20 21:01 66 141/68 H 02/09/20 21:00 20 02/09/20 20:57 70 97 02/09/20 20:52 69 97 02/09/20 20:47 68 97 02/09/20 20:45 70 150/68 H 02/09/20 20:42 70 98 02/09/20 20:37 68 97 02/09/20 20:32 71 98 02/09/20 20:30 73 18 147/78 H 02/09/20 20:27 73 99 02/09/20 20:22 66 97 02/09/20 20:17 68 97 02/09/20 20:16 66 145/68 H 02/09/20 20:12 69 97 02/09/20 20:07 66 97 02/09/20 20:02 68 146/70 H 98 02/09/20 20:00 20 02/09/20 19:57 70 97 02/09/20 19:52 79 99 02/09/20 19:47 76 98 02/09/20 19:45 71 20 146/70 H 02/09/20 19:42 69 98 02/09/20 19:38 68 138/66 02/09/20 19:35 20 02/09/20 19:34 70 132/63 02/09/20 19:30 36.7 C 20 02/09/20 19:28 73 140/79 02/09/20 19:25 20 02/09/20 19:23 82 142/75 H 02/09/20 19:21 73 134/69 02/09/20 19:20 18 02/09/20 19:16 76 157/82 H 02/09/20 19:15 20 Coding Level of Care Code None
--- NOTE | 2020-02-10 09:25 | Labor Progress Brief Note ---
Date of Service February 10, 2020 Subjective Reason For Note: Other (Change of shift) The patient is a 29-year-old 3 para 0, with an EDC of 21 February, who was admitted at 38+ weeks gestational age for term induction. Patient's course remarkable for chronic hypertension as well as type 2 diabetes. She has been on labetalol and insulin throughout the pregnancies. She has been followed per chronic hypertensive and diabetic protocols. Testing and growth have been reassuring. The patient was admitted and started on Pitocin per induction protocol. At 1700 hrs. on 08 February the patient was 5 to 6 cm. Delivering physician has assumed care for the patient at this point. The patient has received an epidural and is comfortable. heart rate tracing has been reassuring. Assessment & Plan (1) Chronic hypertension affecting : - heart rate tracing is category 2 with accelerations and variability - monitoring has been reviewed. Patient has had adequate contractions for the last 14 hours on Pitocin with no cervical change. -At this point the patient meets criteria for failure to progressed. -Discussed with the patient and her . -Recommend primary section for failure to progress. -Risk benefits and alternatives to the surgery have been discussed. All questions have been answered, and the permit has been signed. -Pediatrics and anesthesia have been notified. Admission and Anticipated Discharge Date Admission Date: February 09, 2020 Physical Exam Genitourinary: Cervix: 5 to 6 cm / 90%/-2 Results & Data ([facility] [place]) Vital Signs (Past 12 Hours) Vital Signs Temp Pulse Resp BP Pulse Ox 02/10/20 09:17 90 98 02/10/20 09:12 87 98 02/10/20 09:07 91 H 98 02/10/20 09:02 84 183/84 H 99 02/10/20 08:57 82 98 02/10/20 08:52 88 98 02/10/20 08:47 87 98 02/10/20 08:42 83 98 02/10/20 08:37 87 98 02/10/20 08:34 79 188/84 H 02/10/20 08:32 81 98 02/10/20 08:27 80 98 02/10/20 08:22 83 97 02/10/20 08:17 85 98 02/10/20 08:12 83 98 02/10/20 08:07 82 97 12/15/20 08:03 92 H 171/91 H 1215/20 08:02 96 H 98 1215/20 07:57 85 97 12/15/20 07:52 83 97 1215/20 07:47 79 96 1215/20 07:42 89 98 15/20 07:37 76 97 15/20 07:32 83 158/79 H 97 15/20 07:27 82 97 15/20 07:22 83 97 15/20 07:17 87 99 15/20 07:16 88 158/78 H 15/20 07:12 91 H 98 15/20 07:07 92 H 98 1520 07:02 81 97 15/20 07:01 80 144/67 H 15/20 06:57 79 96 15/20 06:52 80 96 15/20 06:47 84 98 15/20 06:45 85 146/82 H 15/20 06:42 79 97 15/20 06:37 77 97 15/20 06:32 79 97 15/20 06:31 80 156/81 H 1215/20 06:30 20 15/20 06:27 77 97 1215/20 06:22 83 97 15/20 06:17 92 H 98 15/20 06:16 81 153/75 H 15/20 06:12 78 97 1215/20 06:07 82 96 15/20 06:02 77 97 15/20 06:00 89 20 150/73 H 15/20 05:57 103 H 99 15/20 05:52 88 98 15/20 05:47 80 151/69 H 97 15/20 05:42 84 97 15/20 05:37 80 97 15/20 05:32 77 174/82 H 98 15/20 05:30 99.1 F 20 15/20 05:27 79 96 1215/20 05:22 81 96 1215/20 05:17 76 159/77 H 97 15/20 05:12 83 97 15/20 05:07 94 H 97 15/20 05:02 80 96 12/15/20 05:00 79 20 159/73 H 1520 04:59 83 94 20 04:57 82 96 02/10/20 04:53 85 94 02/10/20 04:52 86 96 20 04:47 78 96 02/10/20 04:45 83 161/74 H 02/10/20 04:44 91 H 92 02/10/20 04:42 80 97 02/10/20 04:37 80 98 02/10/20 04:32 81 177/79 H 96 02/10/20 04:27 89 97 02/10/20 04:22 81 97 02/10/20 04:18 91 H 94 02/10/20 04:17 88 94 02/10/20 04:16 80 156/75 H 02/10/20 04:12 96 H 95 02/10/20 04:07 85 96 02/10/20 04:02 86 97 02/10/20 04:01 87 158/79 H 02/10/20 04:00 20 02/10/20 03:57 82 97 02/10/20 03:52 85 97 02/10/20 03:47 84 97 02/10/20 03:46 89 134/67 02/10/20 03:42 92 H 98 02/10/20 03:37 86 98 02/10/20 03:32 87 97 02/10/20 03:30 98.8 F 86 20 139/76 02/10/20 03:27 104 H 98 02/10/20 03:22 100 H 99 02/10/20 03:17 97 H 152/78 H 99 02/10/20 03:12 81 98 02/10/20 03:07 82 97 02/10/20 03:02 93 H 96 02/10/20 03:01 86 150/72 H 02/10/20 03:00 20 02/10/20 02:57 86 96 02/10/20 02:52 85 97 02/10/20 02:47 85 98 02/10/20 02:46 81 162/74 H 02/10/20 02:42 86 98 15 02:37 81 99 02/10/20 02:32 80 97 15 02:30 84 20 149/75 H 02/10/20 02:27 77 97 02/10/20 02:22 82 97 02/10/20 02:17 88 94 02/10/20 02:15 92 H 139/68 02/10/20 02:13 90 94 02/10/20 02:12 92 H 94 02/10/20 02:08 87 94 02/10/20 02:07 84 95 02/10/20 02:02 84 140/70 95 02/10/20 02:00 20 02/10/20 01:57 84 95 02/10/20 01:52 81 95 02/10/20 01:47 81 96 02/10/20 01:45 85 142/67 H 02/10/20 01:42 81 96 02/10/20 01:37 78 96 02/10/20 01:32 86 97 02/10/20 01:31 90 152/73 H 02/10/20 01:30 98.8 F 20 02/10/20 01:27 80 96 02/10/20 01:22 82 96 02/10/20 01:17 92 H 98 02/10/20 01:15 81 136/67 02/10/20 01:12 79 95 02/10/20 01:07 78 96 02/10/20 01:02 80 96 02/10/20 01:01 82 146/70 H 02/10/20 01:00 20 02/10/20 00:57 82 96 02/10/20 00:52 81 98 02/10/20 00:47 85 164/77 H 99 02/10/20 00:42 96 H 98 02/10/20 00:37 88 98 02/10/20 00:32 91 H 98 02/10/20 00:31 89 140/76 02/10/20 00:30 98.1 F 20 02/10/20 00:27 91 H 98 02/10/20 00:22 88 97 02/10/20 00:17 92 H 98 02/10/20 00:16 86 146/69 H 02/10/20 00:12 83 96 02/10/20 00:07 85 97 02/10/20 00:05 94 H 93 02/10/20 00:02 83 97 02/10/20 00:00 86 20 138/67 02/09/20 23:57 88 96 02/09/20 23:52 85 96 02/09/20 23:47 84 96 02/09/20 23:46 85 134/65 02/09/20 23:42 84 96 02/09/20 23:37 84 97 02/09/20 23:32 86 98 02/09/20 23:31 88 131/67 02/09/20 23:30 20 02/09/20 23:27 86 97 02/09/20 23:22 79 96 02/09/20 23:17 78 97 02/09/20 23:15 81 136/66 02/09/20 23:12 86 96 02/09/20 23:07 84 98 02/09/20 23:02 81 98 02/09/20 23:00 98.4 F 81 20 143/67 H 02/09/20 22:57 86 96 02/09/20 22:52 78 98 02/09/20 22:47 76 98 02/09/20 22:46 76 153/77 H 02/09/20 22:42 80 99 02/09/20 22:37 76 99 02/09/20 22:32 80 98 02/09/20 22:31 84 169/81 H 02/09/20 22:30 18 02/09/20 22:27 90 98 02/09/20 22:22 86 99 02/09/20 22:18 75 163/80 H 02/09/20 22:17 83 100 02/09/20 22:16 88 174/81 H 02/09/20 22:12 83 99 02/09/20 22:07 74 98 02/09/20 22:02 79 157/74 H 99 02/09/20 22:00 20 02/09/20 21:57 82 98 02/09/20 21:52 82 98 02/09/20 21:48 75 166/80 H 02/09/20 21:47 78 100 02/09/20 21:42 80 99 02/09/20 21:37 84 99 02/09/20 21:32 77 98 02/09/20 21:31 80 162/74 H 02/09/20 21:30 98.4 F 20 02/09/20 21:27 89 99 02/09/20 21:22 71 98 Coding Level of Care Code None Diagnoses Chronic hypertension affecting O10.919
[2020-02-10] MEDS ORDERED: OXYTOCIN 10 UNITS/ML VIAL ONE ×3 (09:29→10:38)
[2020-02-10] MEDS ORDERED: MoRPHine SULFATE PF 1 MG/ML 10 ML AMP/VIAL ONE (09:29)
[2020-02-10] MEDS ORDERED: CITRIC ACID/SODIUM CITRATE 15 ML UDC PO SCH (09:30)
[2020-02-10] MEDS ORDERED: LACTATED RINGER'S 1,000 ML IV SCH ×2 (09:30→14:33)
[2020-02-10] MEDS ORDERED: LIDOCAINE/EPINEPHRINE 2% 1:200,000 20 ML SDV ONE (09:32)
[2020-02-10] MEDS ORDERED: CARBOPROST TROMETHAMINE 250 MCG/ML AMPUL ONE (09:36)
[2020-02-10] MEDS: LABETALOL HCL 300 MG TAB PO SCH ×2 (10:37→21:39)
[2020-02-10] MEDS ORDERED: ONDANSETRON INJ 2 MG/ML 2 ML VIAL ONE (10:38)
[2020-02-10] MEDS ORDERED: hydrALAZINE HCL 20 MG/ML VIAL ONE (10:38)
--- NOTE | 2020-02-10 10:56 | Post Operative Brief Note ---
[facility] Immediate Post Op with CF Date of Surgery February 10, 2020 Pre & Post Diagnosis Pre-Op 1) Complicated at 38 weeks GA 2) Chronic Hypertension 3) Type 2 Diabetes, on insulin 4) Failure to progress Post-Op 1) Sme Operation Date: 02/10/20 09:35 <No data on this case meets the specified criteria> I identified the patient and participated in the time-out.: Yes Procedure Primary LCT Section Operation Date: 02/10/20 09:35 <No data on this case meets the specified criteria> Surgeon Deniz Tamez Jr, MD, FACOG Information Systems Director [place] Estimated Blood Loss 800 Findings See Below (Viable male , Apagrs 10/04; weight 6lbs 6ozs, cord gasses pending, normal appearing tubes and ovaries bilaerally) OB - Results Labs Labs: [facility] 02/09/20 10:36 Sodium 139 Potassium 3.8 Chloride 110 H Carbon Dioxide 24 BUN 8 Creatinine 0.55 L Glucose 84 Calcium 9.3 Liver Function 02/09/20 Range/Units 10:36 Total Bilirubin 0.3 (0.2-1) mg/dl AST 8 L (15-37) U/L ALT 14 (12-78) U/L Alkaline Phosphatase 119 H (45-117) U/L Albumin 2.7 L (3.4-5.0) gm/dl OB Procedure charges OB Charges 36583 C/S
[2020-02-10] MEDS ORDERED: ePHEDrine sulfate 50 MG/ML AMP IV PRN (11:06)
[2020-02-10] MEDS ORDERED: LACTATED RINGER'S 500 ML IV PRN (11:06)
[2020-02-10] MEDS ORDERED: ONDANSETRON INJ 2 MG/ML 2 ML VIAL IV PRN (11:06)
[2020-02-10] MEDS ORDERED: NALOXONE HCL 1 MG in SODIUM CHLORIDE 0.9% 1000ML 1,000 ML IV PRN (11:06)
[2020-02-10] MEDS ORDERED: NALOXONE HCL 0.4 MG/1 ML VIAL/CARP IV PRN (11:06)
[2020-02-10] MEDS ORDERED: diphenhydrAMINE 50 MG/ML VIAL IV PRN (11:06)
[2020-02-10] MEDS ORDERED: HYDROmorphone INJ 0.5 MG/0.5 ML SYR IV PRN (11:06)
[2020-02-10] MEDS ORDERED: MoRPHine SULFATE PF 1 MG/ML 10 ML AMP/VIAL EPI ONE (11:06)
[2020-02-10] MEDS ORDERED: NALOXONE HCL 0.08 MG in SYRINGE 1.8 ML IV PRN (11:06)
[2020-02-10] MEDS ORDERED: CARBOPROST TROMETHAMINE 250 MCG/ML AMPUL IM ONE (11:14)
[2020-02-10] MEDS ORDERED: OXYTOCIN 10 UNITS/ML VIAL IM ONE (11:14)
[2020-02-10] MEDS ORDERED: DC INTRASPINAL MORPHINE SCH (11:15)
[2020-02-10] MEDS ORDERED: NO NARCOTICS OR SEDATIVES SCH (11:15)
[2020-02-10] MEDS ORDERED: SODIUM CHLORIDE 0.9% 1000ML 1,000 ML IV SCH (11:15)
--- NOTE | 2020-02-10 12:15 | Anesthesiology Progress Note ---
Date of Service February 10, 2020 Anesthesia Post Procedure Vital Signs Vital Signs: Temp Pulse Resp BP Pulse Ox 02/10/20 12:13 87 144/67 H 02/10/20 12:08 84 97 02/10/20 12:03 86 130/62 97 02/10/20 12:00 20 02/10/20 11:58 86 98 02/10/20 11:53 89 146/76 H 99 02/10/20 11:50 20 02/10/20 11:48 85 98 02/10/20 11:43 85 144/70 H 99 02/10/20 11:40 20 02/10/20 11:38 89 99 02/10/20 11:33 87 143/68 H 100 02/10/20 11:30 20 02/10/20 11:28 84 98 02/10/20 11:23 86 129/60 98 02/10/20 11:20 20 02/10/20 11:18 88 87 L 02/10/20 11:17 79 90 02/10/20 11:13 79 128/66 98 02/10/20 11:10 20 02/10/20 11:08 76 98 02/10/20 11:03 80 126/66 98 02/10/20 11:00 37.1 C 20 02/10/20 09:47 86 97 02/10/20 09:42 88 99 02/10/20 09:37 97 H 100 02/10/20 09:32 87 176/81 H 98 02/10/20 09:27 92 H 98 02/10/20 09:22 87 98 02/10/20 09:17 90 98 02/10/20 09:12 87 98 02/10/20 09:07 91 H 98 02/10/20 09:02 84 183/84 H 99 02/10/20 08:57 82 98 02/10/20 08:52 88 98 02/10/20 08:47 87 98 02/10/20 08:42 83 98 02/10/20 08:37 87 98 02/10/20 08:34 79 188/84 H 02/10/20 08:32 81 98 02/10/20 08:27 80 98 02/10/20 08:22 83 97 02/10/20 08:17 85 98 02/10/20 08:12 83 98 12/15/20 08:07 82 97 1215/20 08:03 92 H 171/91 H 1215/20 08:02 96 H 98 15/20 07:57 85 97 15/20 07:52 83 97 1215/20 07:47 79 96 1215/20 07:42 89 98 15/20 07:37 76 97 15/20 07:32 83 158/79 H 97 15/20 07:27 82 97 15/20 07:22 83 97 15/20 07:17 87 99 15/20 07:16 88 158/78 H 15/20 07:12 91 H 98 15/20 07:07 92 H 98 15/20 07:02 81 97 15/20 07:01 80 144/67 H 15/20 06:57 79 96 15/20 06:52 80 96 15/20 06:47 84 98 15/20 06:45 85 146/82 H 15/20 06:42 79 97 15/20 06:37 77 97 15/20 06:32 79 97 12/15/20 06:31 80 156/81 H 15/20 06:30 20 15/20 06:27 77 97 15/20 06:22 83 97 15/20 06:17 92 H 98 15/20 06:16 81 153/75 H 15/20 06:12 78 97 15/20 06:07 82 96 15/20 06:02 77 97 15/20 06:00 89 20 150/73 H 15/20 05:57 103 H 99 15/20 05:52 88 98 12/15/20 05:47 80 151/69 H 97 15/20 05:42 84 97 15/20 05:37 80 97 15/20 05:32 77 174/82 H 98 /15/20 05:30 37.3 C 20 15/20 05:27 79 96 12/15/20 05:22 81 96 1215/20 05:17 76 159/77 H 97 15/20 05:12 83 97 15/20 05:07 94 H 97 12/15/20 05:02 80 96 02/10/20 05:00 79 20 159/73 H 02/10/20 04:59 83 94 02/10/20 04:57 82 96 02/10/20 04:53 85 94 02/10/20 04:52 86 96 02/10/20 04:47 78 96 02/10/20 04:45 83 161/74 H 02/10/20 04:44 91 H 92 02/10/20 04:42 80 97 02/10/20 04:37 80 98 02/10/20 04:32 81 177/79 H 96 02/10/20 04:27 89 97 02/10/20 04:22 81 97 02/10/20 04:18 91 H 94 02/10/20 04:17 88 94 02/10/20 04:16 80 156/75 H 02/10/20 04:12 96 H 95 02/10/20 04:07 85 96 02/10/20 04:02 86 97 02/10/20 04:01 87 158/79 H 02/10/20 04:00 20 02/10/20 03:57 82 97 02/10/20 03:52 85 97 02/10/20 03:47 84 97 02/10/20 03:46 89 134/67 02/10/20 03:42 92 H 98 02/10/20 03:37 86 98 02/10/20 03:32 87 97 02/10/20 03:30 37.1 C 86 20 139/76 02/10/20 03:27 104 H 98 02/10/20 03:22 100 H 99 02/10/20 03:17 97 H 152/78 H 99 02/10/20 03:12 81 98 02/10/20 03:07 82 97 02/10/20 03:02 93 H 96 02/10/20 03:01 86 150/72 H 02/10/20 03:00 20 02/10/20 02:57 86 96 02/10/20 02:52 85 97 02/10/20 02:47 85 98 02/10/20 02:46 81 162/74 H 02/10/20 02:42 86 98 02/10/20 02:37 81 99 02/10/20 02:32 80 97 02/10/20 02:30 84 20 149/75 H 02/10/20 02:27 77 97 02/10/20 02:22 82 97 02/10/20 02:17 88 94 02/10/20 02:15 92 H 139/68 02/10/20 02:13 90 94 02/10/20 02:12 92 H 94 02/10/20 02:08 87 94 02/10/20 02:07 84 95 02/10/20 02:02 84 140/70 95 02/10/20 02:00 20 02/10/20 01:57 84 95 02/10/20 01:52 81 95 02/10/20 01:47 81 96 02/10/20 01:45 85 142/67 H 02/10/20 01:42 81 96 02/10/20 01:37 78 96 02/10/20 01:32 86 97 02/10/20 01:31 90 152/73 H 02/10/20 01:30 37.1 C 20 02/10/20 01:27 80 96 02/10/20 01:22 82 96 02/10/20 01:17 92 H 98 02/10/20 01:15 81 136/67 02/10/20 01:12 79 95 02/10/20 01:07 78 96 02/10/20 01:02 80 96 02/10/20 01:01 82 146/70 H 02/10/20 01:00 02/10/20 00:57 82 96 02/10/20 00:52 81 98 02/10/20 00:47 85 164/77 H 99 02/10/20 00:42 96 H 98 02/10/20 00:37 88 98 02/10/20 00:32 91 H 98 02/10/20 00:31 89 140/76 02/10/20 00:30 36.7 C 20 02/10/20 00:27 91 H 98 02/10/20 00:22 88 97 02/10/20 00:17 92 H 98 02/10/20 00:16 86 146/69 H 02/10/20 00:12 83 96 02/10/20 00:07 85 97 02/10/20 00:05 94 H 93 02/10/20 00:02 83 97 02/10/20 00:00 86 20 138/67 02/09/20 23:57 88 96 02/09/20 23:52 85 96 02/09/20 23:47 84 96 02/09/20 23:46 85 134/65 02/09/20 23:42 84 96 02/09/20 23:37 84 97 02/09/20 23:32 86 98 02/09/20 23:31 88 131/67 02/09/20 23:30 20 02/09/20 23:27 86 97 02/09/20 23:22 79 96 02/09/20 23:17 78 97 02/09/20 23:15 81 136/66 02/09/20 23:12 86 96 02/09/20 23:07 84 98 02/09/20 23:02 81 98 02/09/20 23:00 36.9 C 81 20 143/67 H 02/09/20 22:57 86 96 02/09/20 22:52 78 98 02/09/20 22:47 76 98 02/09/20 22:46 76 153/77 H 02/09/20 22:42 80 99 02/09/20 22:37 76 99 02/09/20 22:32 80 98 02/09/20 22:31 84 169/81 H 02/09/20 22:30 18 02/09/20 22:27 90 98 02/09/20 22:22 86 99 02/09/20 22:18 75 163/80 H 02/09/20 22:17 83 100 02/09/20 22:16 88 174/81 H 02/09/20 22:12 83 99 02/09/20 22:07 74 98 02/09/20 22:02 79 157/74 H 99 02/09/20 22:00 20 02/09/20 21:57 82 98 02/09/20 21:52 82 98 02/09/20 21:48 75 166/80 H 02/09/20 21:47 78 100 02/09/20 21:42 80 99 02/09/20 21:37 84 99 02/09/20 21:32 77 98 02/09/20 21:31 80 162/74 H 02/09/20 21:30 36.9 C 20 02/09/20 21:27 89 99 02/09/20 21:22 71 98 12/14/20 21:17 71 98 20 21:12 70 97 20 21:07 72 95 20 21:02 71 97 20 21:01 66 141/68 H 20 21:00 20 20 20:57 70 97 20 20:52 69 97 20 20:47 68 97 20 20:45 70 150/68 H 20 20:42 70 98 20 20:37 68 97 20 20:32 71 98 20 20:30 73 18 147/78 H 20 20:27 73 99 20 20:22 66 97 20 20:17 68 97 20 20:16 66 145/68 H 20 20:12 69 97 20 20:07 66 97 20 20:02 68 146/70 H 98 20 20:00 20 02/09/20 19:57 70 97 20 19:52 79 99 20 19:47 76 98 20 19:45 71 20 146/70 H 20 19:42 69 98 20 19:38 68 138/66 20 19:35 20 02/09/20 19:34 70 132/63 20 19:30 36.7 C 20 02/09/20 19:28 73 140/79 20 19:25 20 02/09/20 19:23 82 142/75 H 20 19:21 73 134/69 20 19:20 18 20 19:16 76 157/82 H 20 19:15 20 02/09/20 19:14 77 156/72 H 20 19:12 77 169/83 H 20 19:10 87 20 172/101 H 20 19:08 89 179/102 H 20 18:55 80 91 20 18:52 82 100 20 18:47 88 100 20 18:41 85 100 02/09/20 17:58 82 160/89 H 02/09/20 17:16 83 172/86 H 02/09/20 16:08 37.1 C 20 02/09/20 15:58 87 176/87 H 02/09/20 15:00 88 164/88 H 02/09/20 14:05 84 160/77 H 02/09/20 13:58 85 181/86 H 02/09/20 12:58 84 178/87 H Transfer of Care Handoff Completed per policy Notes Mental Status: alert / awake / arousable and participated in evaluation Patient Amnestic to Procedure: Yes Nausea / Vomiting: adequately controlled Pain: adequately controlled Airway Patency, RR, SpO2: stable & adequate BP & HR: stable & adequate Hydration State: stable & adequate Anesthetic Complications: no major complications apparent and Pt Satisfied with anesthetic care
[2020-02-10 12:18] LABS: Base Excess Cord Arterial Bld -0.8 mEq/L (-9-1.8); CO2 Cord Arterial Blood 57 mmHg (39.1-73.5); HCO3 Cord Arterial Blood 27 mmol/L (19.7-28.5); PO2 Cord Arterial Blood 16 mmHg (4.1-31.7); pH Cord Arterial Blood 7.29 (7.1-7.38)
[2020-02-10 12:23] LABS: Base Excess Cord Venous Blood -0.4 mEq/L (-7.7-1.9); Cord Venous Blood HCO3 25 mmol/L (18.4-26.8); Cord Venous Blood PCO2 46 mmHg (30.4-57.2); Cord Venous Blood PO2 38 mmHg (14.1-43.3); Cord Venous Blood pH 7.36 (7.20-7.44)
[2020-02-10 12:27] LABS: Oxygen Sat Cord Arterial Blood < 60.0 % (<60)
--- NOTE | 2020-02-10 12:47 | Hospitalist Consultation ---
Date of Consultation February 10, 2020 Assessment & Plan (1) Type 2 diabetes mellitus affecting , antepartum: - A1C was ~6.0 last spring, previously was on Novolog NPH 26 U QPM, was instructed to take 13 U last evening prior to induction. Had been taking metformin 500 U BID prior to . Recheck A1C with am labs - likely can return to taking metformin which is safe with - Will consult glycemic pharmacy - Diabetic diet, only on clears currently - Follow ISS with accuchecks achs (2) Chronic hypertension affecting : - BP of 146/70 - acceptable at this time - Was on labetalol 300 mg BID, will continue this and monitor for acute blood loss s/p . Prior to was taking atenolol. Will discuss with pharmacy regarding antihypertensive and mother planning to breastfeed. - Encourage oral hydration - Pt reports has been previously been worked up by Endocrinology, for cushings but this was negative workup. (3) Morbid obesity: - BMI 44.9, will encourage diet and exercise prior to discharge (4) Asthma: - Hx of such, not acute issue DVT ppx: teds, ambulatory CODE: FULL Dispo: From home. Thank you for involving us in the care of Ms. Quinn. Please do not hesitate to call with questions or concerns. At this time medicine service will follow along. Supervising Physician Co-Signing Physician Notes PA Supervision Note: I personally saw and examined the patient. I verified all agustin points and agree with RHINA Smith with the following exceptions and/or additions: Pt doing well, some soreness from site. No chest pain or SOB. RN checked glucose for me at the [facility] and was 114-note this was post-prandial. History and ROS reviewed as above VSS Obese, NAD, AAOx3 RRR no mgr CTAB no wcr ABd +BS soft NT ND, Uterine fundus at umbilicus Ext no edema 29 yo female here POD#0 s/p , with DMII and chronic HTN, obesity -add on accuchecks and hypoglycemic protocol -change Novolog to just 1:30 CF and no carb coverage as glucose very well controllled. Will not likely need any insulin now that she has delivered -can restart metformin upon discharge follow BPs History of Present Illness Reason for Consultation: DM Type II, HTN Attending Physician: Lanie Frances DO History of Present Illness This is a 29 yo F with PMhx hypertension, DM type II, who underwent on 02/10/20 at 09:[address] Tamez. Medicine has been consulted for insulin regimen and hypertension. Pt is doing well s/p . Father of the child is present at bedside. Mother is still on a clear liquid diet, has not had a BM yet, urinating fine. Plans to breastfeed the baby. Denies any acute complaints. Allergies Allergy/AdvReac Type Severity Reaction Status Date / Time sulfamethoxazole Allergy Mild Hives Verified 02/08/20 19:14 [From ] trimethoprim [From ] Allergy Hives Verified 02/08/20 19:14 Home Medications Medication Instructions Recorded Confirmed Type blood sugar diagnostic #100 ea 06/06/19 02/06/20 Rx acetone (urine) test #50 ea 07/17/19 02/06/20 Rx insulin syringe-needle U-100 0.5 #50 ea 07/29/19 02/06/20 Rx mL 31 gauge x 5/16" lancets 30 gauge #200 ea 07/29/19 02/06/20 Rx acetone (urine) test [Ketone Urine 02/08/20 02/08/20 History Test] aspirin 81 mg PO DAILY 02/09/20 02/09/20 History cholecalciferol (vitamin D3) 50,000 unit PO WK 02/09/20 02/09/20 History insulin NPH isoph U-100 human 13 unit SUBCUT PM 02/09/20 02/09/20 History [Novolin N NPH U-100 Insulin] labetalol 300 mg PO BID 02/09/20 02/09/20 History prenat.vits,zarina,pfy-fwyf-qwvcd 1 tab PO DAILY 02/09/20 02/09/20 History [ Vitamin] valacyclovir [Valtrex] 500 mg PO DAILY 02/09/20 02/09/20 History Patient History Medical History Anxiety Chronic headaches Esophageal reflux Galactorrhea Heart palpitations HSV (herpes simplex virus) anogenital infection Hx of varicella Hypokalemia Pituitary abnormality Possible 6 mm left tumor Poorly-controlled hypertension Spontaneous in first trimester Subclinical hypothyroidism Type 2 diabetes mellitus UTI (urinary tract infection) Yeast infection Surgical History S/P colonoscopy S/P wisdom tooth extraction Family History Family/Other Depression Obesity Stroke Multiple gestation Mother Hypertension Diabetes Father Diabetes Grandmother (Maternal) Hypercholesteremia Grandmother (Paternal) Colorectal cancer Aunt Cervical cancer Denies family history of Ovarian cancer Prostate cancer Coronary heart disease Breast cancer Social History (Updated 12/25/19 @ 12:52 by Melrine Bundy MA) Smoking Status: Never smoker Second Hand Exposure: Yes; Hx Alcohol Use: No Hx Substance Use: No Preferred Language: Mongolian Visual Impairment: No Limitations Hearing Ability: Normal 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 current occupational status: unemployed and student Other Information That Helps Us Care for You: No Feels Safe at Home: Yes Safety Concerns: Feels Safe At This Time Childhood Exposure to Second-Hand Smoke: Yes caffeine: Yes during the past year weight has: remained stable Dental Care, Regularly: Yes Physical Activity Frequency Comment: walk Seatbelt Use: always Sunscreen Use: Yes Assistive Devices: None Review of Systems Review of Systems: Constitutional: No fever, sweats or chills Eyes: No diplopia, no worsening or blurred vision ENT: normal hearing, no trouble swallowing Respiratory: No cough, sputum, dyspnea at rest or on exertion Cardiovascular: No chest pain, tightness or palpitations Abdomen: No pain, nausea, vomiting, diarrhea or constipation, + s/p c section Musculoskeletal: No joint pain, calf pain, swelling Neurologic: No weakness, numbness/tingling, or balance problems Psychiatric: No anxiety or depression Skin: No rash or itch Physical Exam Physical Exam: General: awake, alert, no apparent distress, +obese Head: Normocephalic, atraumatic ENT: PERRL, EOMI, no pharyngeal exudate, mucous membranes moist Chest: Clear to auscultation, on room air, no adventitious breath sounds Cardiac: Regular rate and rhythm, no murmur, no JVD, normal peripheral pulses, good capillary refill Abdominal: NABS x 4 quadrants, soft, nondistended Extremities: Normal inspection, no peripheral edema or erythema, calfs nontender to palpation Psych: Normal mood and affect Neuro: AAO x 3, strength intact bilaterally and rated 5/5, no motor deficits, speech is clear, no peripheral sensory deficits Results & Data Results & Data ([facility]) Vital Signs (Past 12 Hours) Vital Signs Temp Pulse Resp BP Pulse Ox 02/10/20 12:33 82 150/72 H 98 02/10/20 12:28 89 98 02/10/20 12:23 90 144/78 H 97 02/10/20 12:18 91 H 98 02/10/20 12:13 86 144/67 H 97 02/10/20 12:08 84 97 02/10/20 12:03 86 130/62 97 02/10/20 12:00 20 02/10/20 11:58 86 98 02/10/20 11:53 89 146/76 H 99 02/10/20 11:50 20 02/10/20 11:48 85 98 02/10/20 11:43 85 144/70 H 99 02/10/20 11:40 20 02/10/20 11:38 89 99 02/10/20 11:33 87 143/68 H 100 02/10/20 11:30 20 02/10/20 11:28 84 98 02/10/20 11:23 86 129/60 98 02/10/20 11:20 20 02/10/20 11:18 88 87 L 02/10/20 11:17 79 90 02/10/20 11:13 79 128/66 98 02/10/20 11:10 20 02/10/20 11:08 76 98 02/10/20 11:03 80 126/66 98 02/10/20 11:00 37.1 C 20 02/10/20 09:47 86 97 02/10/20 09:42 88 99 02/10/20 09:37 97 H 100 02/10/20 09:32 87 176/81 H 98 02/10/20 09:27 92 H 98 02/10/20 09:22 87 98 02/10/20 09:17 90 98 12/15/20 09:12 87 98 1215/20 09:07 91 H 98 15/20 09:02 84 183/84 H 99 1215/20 08:57 82 98 15/20 08:52 88 98 15/20 08:47 87 98 15/20 08:42 83 98 15/20 08:37 87 98 15/20 08:34 79 188/84 H 15/20 08:32 81 98 15/20 08:27 80 98 15/20 08:22 83 97 15/20 08:17 85 98 15/20 08:12 83 98 15/20 08:07 82 97 15/20 08:03 92 H 171/91 H 15/20 08:02 96 H 98 15/20 07:57 85 97 15/20 07:52 83 97 15/20 07:47 79 96 15/20 07:42 89 98 15/20 07:37 76 97 15/20 07:32 83 158/79 H 97 15/20 07:27 82 97 15/20 07:22 83 97 15/20 07:17 87 99 15/20 07:16 88 158/78 H 15/20 07:12 91 H 98 15/20 07:07 92 H 98 1520 07:02 81 97 15/20 07:01 80 144/67 H 15/20 06:57 79 96 15/20 06:52 80 96 15/20 06:47 84 98 15/20 06:45 85 146/82 H 15/20 06:42 79 97 15/20 06:37 77 97 15/20 06:32 79 97 15/20 06:31 80 156/81 H 15/20 06:30 20 15/20 06:27 77 97 15/20 06:22 83 97 15/20 06:17 92 H 98 15/20 06:16 81 153/75 H 15/20 06:12 78 97 15/20 06:07 82 96 15/20 06:02 77 97 15/20 06:00 89 20 150/73 H 15/20 05:57 103 H 99 20 05:52 88 98 1520 05:47 80 151/69 H 97 1520 05:42 84 97 15/20 05:37 80 97 1520 05:32 77 174/82 H 98 15 05:30 37.3 C 20 02/10/20 05:27 79 96 1520 05:22 81 96 1520 05:17 76 159/77 H 97 02/10/20 05:12 83 97 15 05:07 94 H 97 02/10/20 05:02 80 96 02/10/20 05:00 79 20 159/73 H 02/10/20 04:59 83 94 15 04:57 82 96 15 04:53 85 94 02/10/20 04:52 86 96 02/10/20 04:47 78 96 02/10/20 04:45 83 161/74 H 20 04:44 91 H 92 02/10/20 04:42 80 97 15 04:37 80 98 15 04:32 81 177/79 H 96 02/10/20 04:27 89 97 02/10/20 04:22 81 97 02/10/20 04:18 91 H 94 02/10/20 04:17 88 94 02/10/20 04:16 80 156/75 H 02/10/20 04:12 96 H 95 02/10/20 04:07 85 96 02/10/20 04:02 86 97 20 04:01 87 158/79 H 20 04:00 20 02/10/20 03:57 82 97 15/20 03:52 85 97 1520 03:47 84 97 1520 03:46 89 134/67 15/20 03:42 92 H 98 02/10/20 03:37 86 98 15 03:32 87 97 1520 03:30 37.1 C 86 20 139/76 1520 03:27 104 H 98 1520 03:22 100 H 99 02/10/20 03:17 97 H 152/78 H 99 02/10/20 03:12 81 98 02/10/20 03:07 82 97 02/10/20 03:02 93 H 96 02/10/20 03:01 86 150/72 H 02/10/20 03:00 20 02/10/20 02:57 86 96 02/10/20 02:52 85 97 02/10/20 02:47 85 98 02/10/20 02:46 81 162/74 H 02/10/20 02:42 86 98 02/10/20 02:37 81 99 02/10/20 02:32 80 97 02/10/20 02:30 84 20 149/75 H 02/10/20 02:27 77 97 02/10/20 02:22 82 97 02/10/20 02:17 88 94 02/10/20 02:15 92 H 139/68 02/10/20 02:13 90 94 02/10/20 02:12 92 H 94 02/10/20 02:08 87 94 02/10/20 02:07 84 95 02/10/20 02:02 84 140/70 95 02/10/20 02:00 20 02/10/20 01:57 84 95 02/10/20 01:52 81 95 02/10/20 01:47 81 96 02/10/20 01:45 85 142/67 H 02/10/20 01:42 81 96 02/10/20 01:37 78 96 02/10/20 01:32 86 97 02/10/20 01:31 90 152/73 H 02/10/20 01:30 37.1 C 20 02/10/20 01:27 80 96 02/10/20 01:22 82 96 02/10/20 01:17 92 H 98 02/10/20 01:15 81 136/67 02/10/20 01:12 79 95 02/10/20 01:07 78 96 02/10/20 01:02 80 96 02/10/20 01:01 82 146/70 H 02/10/20 01:00 20 02/10/20 00:57 82 96 02/10/20 00:52 81 98 02/10/20 00:47 85 164/77 H 99 02/10/20 00:42 96 H 98 02/10/20 00:37 88 98 PG Care Time/CCT Total # of Minutes Spent Total Time Spent with Patient: Total time spent is greater than 50% in coordination of care (as documented) at patient's floor/unit and/or counseling patient: Coding Level of Care Code 66407 Inpt Consult Level 3 Diagnoses Type 2 diabetes mellitus affecting , antepartum O24.119 Chronic hypertension affecting O10.919 Morbid obesity E66.01 Asthma J45.909
[2020-02-10] MEDS ORDERED: PHARMACY GLYCEMIC MGMT CONSULT PRN (12:48)
[2020-02-10] MEDS: OXYTOCIN 20 UNITS in LACTATED RINGER'S 1,000 ML IV SCH ×2 (12:58→22:18)
--- NOTE | 2020-02-10 13:04 | Operative Report (OR) ---
DATE OF OPERATION: 02/10/2020 PREOPERATIVE DIAGNOSES: 1. Complicated at 38+ weeks gestational age. 2. Chronic hypertension. 3. Type 2 diabetes. 4. Failure to progress. POSTOPERATIVE DIAGNOSES: 1. Complicated at 38+ weeks gestational age. 2. Chronic hypertension. 3. Type 2 diabetes. 4. Failure to progress. PROCEDURE PERFORMED: Primary low cervical transverse section. SURGEON: Deniz Tamez MD. CREDIT ADMINISTRATION SPECIALIST: Kulwant Peña MD. ANESTHESIA: Epidural. FINDINGS: Viable male with Apgars of 8 and 9, weight of 6 pounds 6 ounces. Arterial and venous cord gases are pending. Normal-appearing tubes and ovaries bilaterally. PROCEDURE IN DETAIL: The patient was taken to the operating room and after dosing of her epidural anesthesia, was placed in supine position and prepped and draped in a sterile fashion. Pfannenstiel type incision was made. Underlying subcutaneous tissue was dissected down to the ventral abdominal fascia, which was nicked and opened in a horizontal manner. Preperitoneal fascia was dissected away until the peritoneal cavity was entered and opened in a vertical manner. The John self-retaining retractor was inserted and deployed into the incision. The peritoneum overlying the uterus was elevated, opened in a semi-lunar fashion, the inferior margin of which was taken down creating the bladder flap. The uterus was entered sharply and extended in a semilunar fashion manually. Viable male infant was delivered. The cord was clamped and cut, and the baby was passed off to pediatrics who was in attendance for the delivery. Cord gases and cord blood samples were obtained, and the placenta was delivered spontaneously. The uterus was exteriorized and wiped clean of any residual blood, tissue and/or clot. Marked uterine atony was noted. The patient received Hemabate 250 mcg directly into the myometrium. The uterine incision was then closed with 2 layers of 4-0 Vicryl, the first a running locking stitch, the second an imbricating stitch. The uterus continued to remain boggy and the patient then received Pitocin 20 units directly into the myometrium. Manual massage continued of the uterus. At this point, the uterus began to firm up. The uterus was returned to the pelvic cavity and the pelvis was thoroughly irrigated with 1000 mL of warm saline. All pedicles were inspected for hemostasis, which was present. The incision line was intact. Packing was removed. Sponge and needle count was correct. A self-retaining retractor was removed. The rectus muscle was plicated in the midline with a running 2-0 Vicryl stitch. The fascia was closed laterally with a running 0 Vicryl suture. The subcutaneous tissue was irrigated with warm saline and then reapproximated with interrupted 2-0 plain sutures. The skin incision was closed with 4-0 Vicryl subcuticular suture. Sterile dressing was applied and the patient was taken to the recovery room in satisfactory condition. I attest to the content of the Intraoperative Record and any orders documented therein. Any exception s are noted below.
--- NOTE | 2020-02-10 13:41 | Pharmacy Report ---
Glycemic Control Consultation - Date of Service February 10, 2020 - Scope Scope: Glycemic Pharmacist consulted for glycemic control and to write orders per [facility] inpatient glycemic control protocol. - Objective Weight: 131.995 kg Accuchecks BSG (last 24hrs): 02/09/20 02/09/20 02/09/20 14:07 15:07 16:06 POC Glucose 135 H 93 79 02/09/20 02/09/20 02/09/20 16:57 18:14 19:20 POC Glucose 76 82 191 H 02/09/20 02/09/20 02/09/20 19:22 19:23 20:27 POC Glucose 85 88 81 02/09/20 02/09/20 02/09/20 21:29 22:24 23:32 POC Glucose 85 83 85 02/10/20 02/10/20 02/10/20 00:34 01:32 02:21 POC Glucose 94 105 H 95 02/10/20 02/10/20 02/10/20 03:31 04:27 05:34 POC Glucose 102 H 104 H 94 02/10/20 02/10/20 02/10/20 06:22 07:22 08:36 POC Glucose 91 93 88 - Recent Pertinent Medications Outpatient Anti-diabetic Regimen: * NPH 26 units qPM * A1c = 5.8 % 07/14/19 The patient is currently receiving: * Basal insulin: Lantus -- units every -- hours * Correctional Insulin: Novolog Correction per scale ACHS Goal Range: Low -- mg/dL - High -- mg/dL Correction Factor: -- mg/dL/unit * Prandial insulin: Per carb ratio of 1 unit per -- grams CHO consumed * Oral Agents: Risk Factors for Insulin Resistance: * Recent Surgery: POD 0 for * Diet: NPO - Assessment & Plan Assessment & Plan: ASSESSMENT: * Ms Quinn is a 29 y/o F with a PMH of T2DM who underwent today. During induction, BSGs were all below 140 mg/dL. Patient last received insulin on 02/08/20 in the PM with 13 units of NPH. * Will start Novolog Q6 (since NPO) with weight-based stress of 1 -2 as large majority of patient's stressors have been removed. Patient does have baseline diabetes so will remain cognizant of that. PLAN FOR INPATIENT GLYCEMIC CONTROL: * Bolus insulin * NovoLog per scale ACHS or Q6hrs while NPO * Goal Range: Low 110 mg/dL - High 140 mg/dL * Correction Factor: 35 mg/dL/unit * Nutritional / Prandial insulin per carb ratio of 1 unit per 12 grams CHO consumed * Please note that the plan above was derived based on current level of insulin resistance and hospital stress. These recommendations are appropriate for inpatient admission only. Plan of care upon discharge will need to be reassessed to avoid potential outpatient hypo/hyperglycemia. Thank you.
[2020-02-10] MEDS ORDERED: GLUCOSE 40% GEL 15 GM TUBE PO PRN ×2 (13:45→18:26)
[2020-02-10] MEDS ORDERED: GLUCAGON FOR INJ 1 MG VIAL IM PRN (13:45)
[2020-02-10] MEDS ORDERED: DEXTROSE 50% 50 ML SYRINGE IV PRN ×2 (13:45→18:26)
[2020-02-10] MEDS ORDERED: GLUCOSE 10 TABS/TUBE PO PRN ×2 (13:45→18:26)
[2020-02-10] MEDS ORDERED: CARBOHYDRATES FOR HYPOGLYCEMIA PO PRN ×2 (13:45→18:26)
[2020-02-10] MEDS ORDERED: BENZOCAINE 20% AER SPR 82.5 GM CAN EXT PRN (14:33)
[2020-02-10] MEDS ORDERED: HYDROCORTISONE ACETATE 25 MG SUPP PR PRN (14:33)
[2020-02-10] MEDS ORDERED: SUPERCREAM 0.870% 15 GM JAR EXT PRN (14:33)
[2020-02-10] MEDS ORDERED: OXYTOCIN 20 UNITS in LACTATED RINGER'S 1,000 ML IV SCH (15:00)
[2020-02-10] MEDS ORDERED: INSULIN ASPART 100 UNITS/ML 3 ML PEN SC SCH ×2 (18:00→21:00)
[2020-02-10] MEDS ORDERED: GLUCAGON FOR INJ 1 MG VIAL SQ PRN (18:26)
[2020-02-10] MEDS: INSULIN ASPART 100 UNITS/ML 3 ML PEN SC SCH (21:59)
[2020-02-10] MEDS ORDERED: KETOROLAC 30 MG/ML VIAL IV STA (23:42)
[2020-02-10] MEDS ORDERED: KETOROLAC 30 MG/ML VIAL IV PRN (23:42)
[2020-02-11] MEDS ORDERED: diphenhydrAMINE 50 MG/ML VIAL IV PRN (05:06)
[2020-02-11] MEDS ORDERED: ONDANSETRON INJ 2 MG/ML 2 ML VIAL IV PRN (05:06)
[2020-02-11] MEDS ORDERED: KETOROLAC 30 MG/ML VIAL IV PRN (05:06)
[2020-02-11] MEDS ORDERED: diphenhydrAMINE Capsule 25 MG CAP PO PRN (05:06)
[2020-02-11 06:44] LABS: Basophils # (auto) 0.02 K/uL (0-0.2); Basophils % (auto) 0.2 %; Eosinophils # (auto) 0.09 K/uL (0-0.5); Eosinophils % (auto) 0.8 %; Hemoglobin 8.9 g/dL (12.0-16.0); Immature Granulocytes # (auto) 0.01 K/uL (0.00-0.02); Immature Granulocytes % (auto) 0.1 %; Lymphocytes # (auto) 1.57 K/uL (1.2-3.4); Lymphocytes % (auto) 13.5 %; Mean Corpuscular Hemoglobin 24.5 pg (25-34); Mean Corpuscular Volume 74.2 fL (80-100); Mean Platelet Volume 9.1 fL (7.4-10.4); Monocytes # (auto) 0.53 K/uL (0.11-0.59); Monocytes % (auto) 4.6 %; Neutrophils # (auto) 9.41 K/uL (1.4-6.5); Neutrophils % (auto) 80.8 %; Platelet Count 222 K/uL (130-400); RDW Coefficient of Variation 16.1 % (11.5-14.5); RDW Standard Deviation 44.1 fL (36.4-46.3); Red Blood Count 3.64 M/uL (4.2-5.4); White Blood Count 11.63 K/uL (4.8-10.8)
--- NOTE | 2020-02-11 07:05 | Obstetrical Progress Note ---
Date of Service <Dawood Luke MD - Last Filed: 02/11/20 07:18> February 11, 2020 Assessment & Plan <Dawood Luke MD - Last Filed: 02/11/20 07:18> (1) state: 29 y/o s/p LCTS at 38w2d. complicated by cHTN, DM2, and obesity. Stable. AB+. Rubella immune. - advance diet as tolerated - continue dias - w/o issues. continue. - wbc stable. - Hb 10.5->8.9. no signs of active bleeding - continue routine care (2) Type 2 diabetes mellitus affecting , antepartum: (3) Chronic hypertension affecting : Subjective <Dawood Luke MD - Last Filed: 02/11/20 07:18> Ambulation: ambulating normally Voiding: dias catheter in place Passing Gas:: Yes Diet Tolerance:: clear liquids Lochia:: Small Feeding Type:: breast feeding Current Pain Level(1-10): 0 Pain is 0/10 currently. without issues. On liquid diet. Has dias in. +flatus, no BM. Review of Systems Denies fever, chills, sweats Denies shortness of breath, chest pain, palpitations. Denies breast pain. Denies dysuria. Denies headache or changes in vision. Denies nausea/vomiting. Denies numbness, tingling, weakness. Physical Exam <Dawood Luke MD - Last Filed: 02/11/20 07:18> General: Alert, oriented. No acute distress. Cardiac: Regular rate and rhythm, no murmurs/rubs/gallops. Respiratory: Clear to auscultation bilaterally, no wheezes/rales/rhonchi. No respiratory distress. Abdomen: , soft, nontender. Bandage over site. Uterus: Uterine fundus firm, palpable at umbilicus. Lower Extremities: No lower extremity edema or swelling. No deep calf pain. Mike's negative bilaterally. Results & Data ([facility]) <Dawood Luke MD - Last Filed: 02/11/20 07:18> Vital Signs (Past 12 Hours) Vital Signs Temp Pulse Resp BP Pulse Ox 02/11/20 04:30 36.5 C 89 18 96 02/11/20 04:08 18 92 02/11/20 03:12 18 91 02/11/20 02:30 18 95 02/11/20 01:30 18 96 02/11/20 00:30 36.4 C L 86 18 121/73 94 02/10/20 23:26 18 96 02/10/20 22:30 18 95 02/10/20 21:35 94 H 18 144/87 H 96 02/10/20 21:30 18 96 02/10/20 20:00 36.6 C 93 H 18 138/85 97 02/10/20 19:30 18 96 Medications Administered <Deniz Tamez Jr, MD, FACOG - Last Filed: 02/11/20 07:37> Co-Signing Physician Notes Resident Physician Supervision Note: I was present with Dr. Luke during the history and exam. I discussed the case with the resident and agree with the findings and plan as documented in the note. Any exceptions or clarifications are listed here: Marginal urine output, IV fluid bolus. BP stable on Labetalol 300mg bid, diabetes management per hospitalist. Discussed surgery and findings with patient. Will begin ambulation later today. Documented By: Deniz Tamez Jr, MD, FACOG
[2020-02-11] MEDS: IBUPROFEN 600 MG TAB PO PRN ×3 (07:53→19:37)
[2020-02-11] MEDS: LABETALOL HCL 300 MG TAB PO SCH ×2 (07:53→21:30)
[2020-02-11] MEDS: FERROUS SULFATE 325 MG TAB PO SCH (07:54)
[2020-02-11] MEDS: oxyCODONE/ACETAMINOPHEN 5mg/325mg TAB PO PRN ×3 (07:54→19:36)
[2020-02-11] MEDS: PRENATAL VITAMIN 1 TAB PO SCH (07:54)
[2020-02-11] MEDS: INSULIN ASPART 100 UNITS/ML 3 ML PEN SC SCH ×3 (07:55→16:50)
[2020-02-11] MEDS ORDERED: DIPHTHERIA/TETANUS/PERTUSSIS 0.5 ML SYR/VIAL IM ONE (09:00)
--- NOTE | 2020-02-11 19:53 | Hospitalist Progress Note ---
Date of Service February 11, 2020 Assessment & Plan (1) Type 2 diabetes mellitus affecting , antepartum: Glucose high 121, doing well, not requiring any supplemental Novolog - A1C was ~6.0 last spring, previously was on Novolog NPH 26 U QPM, was instructed to take 13 U last evening prior to induction. Had been taking metformin ER 500 mg po BID prior to . -she can return to taking metformin ER 500mg po bid upon discharge which is safe with - Diabetic diet - Follow ISS with accuchecks achs (2) Chronic hypertension affecting : - BPs remain mildly elevated - continue labetalol 300 mg BID - Pt reports has been previously been worked up by Endocrinology, for cushings but this was negative workup. She will follow up with OB for BP check Should also continue f/u with PCP (3) Morbid obesity: - BMI 44.9, would encourage diet and exercise prior to discharge (4) Asthma: - Hx of such, not acute issue DVT ppx: ambulatory CODE: FULL Dispo: From home. Plan for dc POD#3 Thank you for involving us in the care of Ms. Quinn. Please do not hesitate to call with questions or concerns. At this time medicine service will sign off Plan of care was discussed with Dr. Peña -he will prescribe the metformin on discharge Admission and Anticipated Discharge Date Admission Date: February 09, 2020 Subjective Pt doing well today, has some abdominal soreness. Denies CP/SOB. Glucose checks have been good, not requiring O2. Diet was advanced to ADA Review of Systems Review of Systems: All systems reviewed & are unremarkable except as noted in HPI & below Physical Exam Constitutional: WD/WN, vitals as above + morbidly obese Eyes: + anicteric sclerae Neck: trachea midline, no thyromegaly Respiratory: normal respiratory effort, lungs clear to auscultation Cardiovascular: RRR, no murmur, no edema Chest (Breasts): Chest: normal inspection of chest Musculoskeletal: Extremities: extremities normal to inspection; no cyanosis and no clubbing Skin: no rashes, warm and dry Neurologic: moves all extremities and awake; no focal motor deficits Psychiatric: A+Ox3, euthymic affect Lymphatic: no lymphedema Results & Data Results & Data ([facility]) Vital Signs (Past 12 Hours) Vital Signs Temp Pulse Resp BP Pulse Ox 02/11/20 15:46 36.7 C 98 H 18 143/76 H 96 Laboratory Results 02/11/20 02/11/20 02/11/20 Range/Units 16:42 12:13 06:43 WBC (4.8-10.8) K/uL RBC (4.2-5.4) M/uL Hgb (12.0-16.0) g/dL Hct (37-47) % MCV (80-100) fL MCH (25-34) pg MCHC (32-36) g/dL RDW Std Deviation (36.4-46.3) fL RDW Coeff of Susana (11.5-14.5) % Plt Count (130-400) K/uL MPV (7.4-10.4) fL Immature Gran % (Auto) % Neut % (Auto) % Lymph % (Auto) % [place] % (Auto) % Eos % (Auto) % Baso % (Auto) % Neut # (Auto) (1.4-6.5) K/uL Lymph # (Auto) (1.2-3.4) K/uL [place] # (Auto) (0.11-0.59) K/uL Eos # (Auto) (0-0.5) K/uL Baso # (Auto) (0-0.2) K/uL Immature Gran # (Auto) (0.00-0.02) K/uL POC Glucose 121 H 106 H 108 H (70-99) mg/dl 02/11/20 02/10/20 Range/Units 06:29 21:59 WBC 11.63 H (4.8-10.8) K/uL RBC 3.64 L (4.2-5.4) M/uL Hgb 8.9 L (12.0-16.0) g/dL Hct 27.0 L (37-47) % MCV 74.2 L (80-100) fL MCH 24.5 L (25-34) pg MCHC 33.0 (32-36) g/dL RDW Std Deviation 44.1 (36.4-46.3) fL RDW Coeff of Susana 16.1 H (11.5-14.5) % Plt Count 222 (130-400) K/uL MPV 9.1 (7.4-10.4) fL Immature Gran % (Auto) 0.1 % Neut % (Auto) 80.8 % Lymph % (Auto) 13.5 % [place] % (Auto) 4.6 % Eos % (Auto) 0.8 % Baso % (Auto) 0.2 % Neut # (Auto) 9.41 H (1.4-6.5) K/uL Lymph # (Auto) 1.57 (1.2-3.4) K/uL [place] # (Auto) 0.53 (0.11-0.59) K/uL Eos # (Auto) 0.09 (0-0.5) K/uL Baso # (Auto) 0.02 (0-0.2) K/uL Immature Gran # (Auto) 0.01 (0.00-0.02) K/uL POC Glucose 127 H (70-99) mg/dl PG Care Time/CCT Total # of Minutes Spent Total Time Spent with Patient: Total time spent is greater than 50% in coordination of care (as documented) at patient's floor/unit and/or counseling patient: Coding Level of Care Code 19749 Subseq Hosp Care Lvl 2 Diagnoses Type 2 diabetes mellitus affecting , antepartum O24.119 Chronic hypertension affecting O10.919 Morbid obesity E66.01 Asthma J45.909
[2020-02-11] MEDS: MAGNESIUM HYDROXIDE SUSP 30 ML UDC PO SCH (21:02)
[2020-02-11] MEDS: SENNA 8.6 MG TAB PO SCH ×2 (21:30→21:36)
[2020-02-11] MEDS: metFORMIN HCL ER 500 MG TABCR PO SCH (21:54)
[2020-02-12] MEDS: oxyCODONE/ACETAMINOPHEN 5mg/325mg TAB PO PRN ×3 (00:25→23:51)
[2020-02-12 06:42] LABS: Hematocrit (blood only) 26.9 % (37-47); Hemoglobin 8.6 g/dL (12.0-16.0)
--- NOTE | 2020-02-12 07:12 | Obstetrical Progress Note ---
Date of Service <Dawood Luke MD - Last Filed: 02/12/20 08:02> February 12, 2020 Assessment & Plan <Dawood Luke MD - Last Filed: 02/12/20 08:02> (1) state: 29 y/o s/p LCTS at 38w2d on 02/10/20. POD2. complicated by cHTN, DM2, and obesity. Stable. AB+. Rubella immune. - tolerating regular diet and is voiding - borderline tachycardia ~100. - w/o issues. continue. - Hb 10.5->8.9->8.6. no signs of active bleeding - prescribed breast pump for outpatient use - continue routine care. tentative dispo tomorrow. (2) Type 2 diabetes mellitus affecting , antepartum: - per hospitalist consult, can resume metformin ER 500 BID upon discharge (3) Chronic hypertension affecting : - continue labetalol Subjective <Dawood Luke MD - Last Filed: 02/12/20 08:02> Ambulation: ambulating normally Voiding: no voiding problems Passing Gas:: Yes Diet Tolerance:: regular diet Lochia:: Moderate Feeding Type:: breast feeding Current Pain Level(1-10): 2 No BM, but passing flatus. No other complaints. Review of Systems Denies fever, chills, sweats Denies shortness of breath, chest pain, palpitations. Denies breast pain. Denies dysuria. Denies headache Denies nausea/vomiting. Denies numbness, tingling, weakness. Physical Exam <Dawood Luke MD - Last Filed: 02/12/20 08:02> General: Alert, oriented. No acute distress. Cardiac: Regular rate and rhythm, no murmurs/rubs/gallops. Respiratory: Clear to auscultation bilaterally, no wheezes/rales/rhonchi. No respiratory distress. Abdomen: , soft, nontender. Uterus: Uterine fundus firm, palpable 3cm below umbilicus. Lower transverse incision appears intact and nonerythematous, healing appropriately. Lower Extremities: No lower extremity edema or swelling. No deep calf pain. Mike's negative bilaterally. Results & Data ([facility]) <Dawood Luke MD - Last Filed: 02/12/20 08:02> Vital Signs (Past 12 Hours) Vital Signs Temp Pulse Resp BP Pulse Ox 02/12/20 00:00 36.5 C 102 H 18 136/85 96 02/11/20 19:30 36.7 C 100 H 18 138/82 96 Medications Administered <Kulwant Peña MD - Last Filed: 02/12/20 08:11> Co-Signing Physician Notes Patient seen and evaluated and agree with the above findings and plan. Continue routine care. Discussed plan with Medicine who is recommending that she restart prepregnancy meds for HTN and DM. Will need prescriptions at discharge
[2020-02-12] MEDS: PRENATAL VITAMIN 1 TAB PO SCH (08:28)
[2020-02-12] MEDS: FERROUS SULFATE 325 MG TAB PO SCH (08:29)
[2020-02-12] MEDS: LABETALOL HCL 300 MG TAB PO SCH ×2 (08:29→20:54)
--- NOTE | 2020-02-12 10:52 | Obstetrical Progress Note ---
Date of Service February 12, 2020 Assessment & Plan (1) Chronic hypertension affecting : -will repeat PET labs to r/o superimposed pre-eclampsia, pt asymptomatic at this time -upon chart review, it appears that patient may have been up to labetalol 600 BID prior to . Pt unable to confirm dosing prior to . Depending on labs, may discuss w/ hospitalist group regarding dosage increase. Will continue to investigate Admission and Anticipated Discharge Date Admission Date: February 09, 2020 Subjective Pt evaluated after BP was noted to be severe range, per nursing this was just prior to labetalol dose was due. BP check an hour after labetalol dose was 150s on one arm and 170 on the other, 170 was on the side that BPs have been charted on. Pt denies CEJA, vision change, CP, SOB, RUQ/epigastric pain and otherwise feels well other than being tired Physical Exam Constitutional: WD/WN, vitals as above no acute distress Respiratory: normal respiratory effort; no respiratory distress and no labored breathing Results & Data ([facility]) Vital Signs (Past 12 Hours) Vital Signs Temp Pulse Resp BP BP Pulse Ox 02/12/20 10:36 170/105 H 153/88 H 02/12/20 07:25 98.2 F 92 H 18 162/87 H 02/12/20 00:00 97.7 F 102 H 18 136/85 96 PG Care Time/CCT Total # of Minutes Spent Total Time Spent with Patient: Total time spent is greater than 50% in coordination of care (as documented) at patient's floor/unit and/or counseling patient: Coding Level of Care Code None Diagnoses Chronic hypertension affecting O10.919
[2020-02-12 11:01] LABS: Hematocrit (blood only) 26.7 % (37-47); Hemoglobin 8.6 g/dL (12.0-16.0); Mean Corpuscular Hemoglobin 24.1 pg (25-34); Mean Corpuscular Volume 74.8 fL (80-100); Mean Platelet Volume 9.8 fL (7.4-10.4); Platelet Count 250 K/uL (130-400); RDW Coefficient of Variation 16.3 % (11.5-14.5); RDW Standard Deviation 44.8 fL (36.4-46.3); Red Blood Count 3.57 M/uL (4.2-5.4); White Blood Count 12.62 K/uL (4.8-10.8)
[2020-02-12 11:08] LABS: Mean Corpuscular Hgb Conc 32.2 g/dL (32-36)
[2020-02-12 11:21] LABS: Albumin Level 2.2 gm/dl (3.4-5.0); BUN Creatinine Ratio 11.6 (10-20); Calcium 8.9 mg/dl (8.5-10.1); Creatinine Clr Calc Pharmacy 197.3 ml/min; Est GFR (African American) 141.6; Est GFR (Non-African American) 122.1; Potassium 3.5 mmol/L (3.5-5.1)
[2020-02-12 11:24] LABS: Albumin Globulin Ratio 0.6 (0.9-2); Bilirubin,Total 0.2 mg/dl (0.2-1); Globulin 3.9 gm/dl (2.5-4.0); Total Protein 6.1 gm/dl (6.4-8.2)
[2020-02-12] MEDS ORDERED: LABETALOL HCL 300 MG TAB PO ONE (11:26)
[2020-02-12] MEDS: IBUPROFEN 600 MG TAB PO PRN ×2 (11:35→23:51)
--- NOTE | 2020-02-12 11:37 | Communication Note ---
Date of Service: February 12, 2020 Reviewed EMR outpatient chart, patient has been placed on labetalol 600 mg p.o. twice daily since February 2019 provided by PCP. The last prescription was again for 600 mg p.o. twice daily. Patient's pharmacy was contacted to confirm dosing and it was refilled as such last in September. Upon further discussion with the patient, the patient is now able to state that she takes 2 blood pressure medication pills in the morning and 2 blood pressure medication pills in the evening, she now thinks that each pill was 300 mg, totaling 600 mg each morning and evening. We have been giving her 1 pill in the morning and evening. Patient states that she was wondering why she had only gotten 1 BP medication, but was not sure if she should say something as she felt her sugars were the primary concern. PET labs were again normal. Will give additional dose of 300mg now, and start 600mg dose in the evening per prior rx
--- NOTE | 2020-02-12 12:28 | Obstetrical Progress Note ---
Date of Service February 12, 2020 Assessment & Plan (1) Chronic hypertension affecting : -actual home dose of labetalol verified w/ pt. PET labs wnl, BPs this AM likely due to under-dosing of meds. -add'l dose given now, restart full home dose this evening and cont to monitor Admission and Anticipated Discharge Date Admission Date: February 09, 2020 Subjective This note is delayed entry as it appears my prior note around [id number] did not save to chart. EMR was further investigated, found to have rx for labetalol 600mg BID. Call was placed to pt's pharmacy to confirm dosing on rx, they confirmed labetalol 600 BID. Again presented to pt's room to discuss. Pt states she takes 2 BP pills in the AM and 2 in the PM, thinks each pill is 300 so total of 600 in AM and PM. We have been giving 300 BID. Will give 1 dose of 300mg now to complete 600mg in AM, start 600 in PM today. Physical Exam Constitutional: WD/WN, vitals as above no acute distress Respiratory: normal respiratory effort; no respiratory distress and no labored breathing Results & Data ([facility]) Vital Signs (Past 12 Hours) Vital Signs Temp Pulse Resp BP BP 02/12/20 12:16 140/103 H 02/12/20 10:36 170/105 H 153/88 H 02/12/20 07:25 98.2 F 92 H 18 162/87 H PG Care Time/CCT Total # of Minutes Spent Total Time Spent with Patient: Total time spent is greater than 50% in coordination of care (as documented) at patient's floor/unit and/or counseling patient: Coding Level of Care Code None Diagnoses Chronic hypertension affecting O10.919
[2020-02-12] MEDS: metFORMIN HCL ER 500 MG TABCR PO SCH (20:57)
[2020-02-13] MEDS: MAGNESIUM HYDROXIDE SUSP 30 ML UDC PO SCH (00:26)
--- NOTE | 2020-02-13 06:48 | Obstetrical Progress Note ---
Date of Service <Dawood Luke MD - Last Filed: 02/13/20 06:48> February 13, 2020 Assessment & Plan <Dawood Luke MD - Last Filed: 02/13/20 06:48> (1) state: Stable.29 y/o s/p LCTS at 38w2d on 02/10/20. POD3. complicated by cHTN, DM2, and obesity. AB+. Rubella immune. - tolerating regular diet and is voiding - borderline tachycardia, improved this AM (pulse 86 at 0259) - w/o issues. continue. - Hb 10.5->8.9->8.6 (02/11). no signs of active bleeding - prescribed breast pump for outpatient use - continue routine care. tentative dispo today. will monitor BPs - 1 wk BP check. 6 wk f/u (2) Chronic hypertension affecting : - labetalol increased from 300BID to 600 BID since yesterday evening based on patient's corrected home dose - 140s-150s /80s-90s overnight. systolic 161 x1. - denies headache, visual changes, RUQ pain - will monitor BPs this AM (3) Type 2 diabetes mellitus affecting , antepartum: - per hospitalist consult, can resume metformin ER 500 BID upon discharge Subjective <Dawood Luke MD - Last Filed: 02/13/20 06:48> Ambulation: ambulating normally Voiding: no voiding problems Passing Gas:: Yes Diet Tolerance:: regular diet Lochia:: Small Feeding Type:: breast feeding Current Pain Level(1-10): 0 No new complaints today. No current pain complaints. Lochia moderate. Passed BM. Review of Systems Denies fever, chills, sweats Denies shortness of breath, chest pain, palpitations. Denies breast pain. Denies dysuria. Denies headache or changes in vision. Denies RUQ pain. Denies nausea/vomiting. Denies numbness, tingling, weakness. Physical Exam <Dawood Luke MD - Last Filed: 02/13/20 06:48> General: Alert, oriented. No acute distress. Cardiac: Regular rate and rhythm, no murmurs/rubs/gallops. Respiratory: Clear to auscultation bilaterally, no wheezes/rales/rhonchi. No respiratory distress. Abdomen: , soft. Uterus: Uterine fundus firm, palpable 2cm below umbilicus. Lower Extremities: No lower extremity edema or swelling. No deep calf pain. Mike's negative bilaterally. Results & Data ([facility]) <Dawood Luke MD - Last Filed: 02/13/20 06:48> Vital Signs (Past 12 Hours) Vital Signs Temp Pulse Resp BP Pulse Ox 02/13/20 02:59 86 18 149/89 H 02/13/20 02:49 85 18 161/95 H 98 02/13/20 01:02 36.3 C L 94 H 18 156/96 H 98 02/12/20 20:15 37.2 C 101 H 18 146/83 H 96 Medications Administered <Romy Li MD - Last Filed: 02/13/20 07:05> Co-Signing Physician Notes Resident Physician Supervision Note: I interviewed and examined the patient. Discussed with Dr. Luke and agree with findings and plan as documented in the note. Any exceptions or clarifications are listed here: POD3 s/p pLTCS for failure to progress during IOL for cHTN on meds and T2DM. She is meeting all postop milestones and denies s/s PET. BG stable on metformin, will go home on 500mg BID per hospitalist and f/u with PCP. BP med home dosing was discovered to be 600BID yesterday when BPs were increasing, PET labs were wnl at that time. Believe BPs are due to fluid shifts, pain, coming out of the anesthesia window, and being off home BP dosing for a few days rather than superimposed PET. BPs improved following administration, but still slightly elevated. Pt reports BPs can be from 120- 130s up to 150s pre-, normally does not feel well when her BPs go above 160s/170s and has even gone up to 200s pre-. Will monitor BPs this morning with second day of home med dosing, can d/c later this afternoon if stable. Recommend BP check early next week as well, pt verbalized understanding. Documented By: Romy Li MD
[2020-02-13] MEDS: IBUPROFEN 600 MG TAB PO PRN ×2 (06:52→12:36)
[2020-02-13] MEDS: oxyCODONE/ACETAMINOPHEN 5mg/325mg TAB PO PRN ×2 (06:52→12:36)
[2020-02-13] MEDS: FERROUS SULFATE 325 MG TAB PO SCH (08:50)
[2020-02-13] MEDS: PRENATAL VITAMIN 1 TAB PO SCH (08:50)
[2020-02-13] MEDS: LABETALOL HCL 300 MG TAB PO SCH (08:50)
--- NOTE | 2020-02-13 08:54 | Discharge Summary ---
Date of Service February 13, 2020 Admission HPI Per Admitting Provider 29yo @ 38 1, IOL for cHTN - on labetalol. Also with PGDM, on insulin. Rec'd dias bulb last night. Small amount of vaginal bleeding, bulb fell out this AM. No ctx, no leaking fluid. + movement. complications/plans: DM Protocol *Baby ASA dailly, start 12-28wks, continue unil del *Ophthalmology consult - Report in [employer] from Mar 2018 *Dietary consult *Qmonthly urine cultures * Echo 22-24wks - report received, full clinic note pending *Twice weekly NST's @32 or 34wks *Serial Growth US starting 28wks *Baseline 24hr Urine and Q trimester - 28wk 24hr urine 340, unable to find baseline *EKG (Cardio [id number]) - had EKG 09/27/18 in ED CHTN *Baby ASA daily start 12-28 wks, continue until delivery *wkly NST's @32wks and twice wkly @36 wks *Serial Growth US @ 24w (doppler only if abnml) *Baseline 24hr urine (additional PRN) - 28wk 24hr urine 340, unable to find baseline - pt aware, will continue to monitor *weekly ROSA's @ 32wk6D *Deliver [id number] 02/08 at 38 1/7 with B Obesity (BMI 41.5) *BMI 35 or >At start of preg, growth US @ 32wk Hx HSV *Valtrex @ 36 wks echo on 11/18/19-Dr. Carpenter recommending echo Flu shot given 12/02/19 SB Discharge Data Consultations 02/10/20 11:14 Consult Hospitalist Routine Procedures Performed Operation Date: 02/10/20 09:35 Actual Procedures p Primary Low Transverse Section at 1021 for Live Male Child - Deniz Tamez Jr, MD, FACOG Hospital Course (1) Chronic hypertension affecting : On the morning of admission the patient was started on her Pitocin per induction protocol. This was titrated up throughout the day. Approximately 10 hours into the induction the patient began to be uncomfortable and anesthesia was consulted and an epidural was placed. At this point patient was 5 cm dilated 90% -2 station. She had artificial rupture membranes for clear fluid and Pitocin was continued. The patient's sugars were monitored every 4 hours of. They remained in tolerable range and insulin was not initiated during her induction. Patient continued on her p.o. labetalol with tolerable blood pressures. On day 2. Delivering physician and assumed care for the patient. At this point the patient had had no cervical exchange mechanic the previous 16 hours despite adequate Pitocin and contractions. Recommendation at this point was to proceed with a primary section for failure to progress. The patient underwent a primary low cervical transverse section delivering a viable with Apgars of 8 and 9 and weight of 6 lb 6 oz. Arterial cord pH 7.29 venous cord pH 7.36. Postoperatively the patient has done well. Dias catheter was removed on the 1st postoperative day. The patient's labetalol was re-initiated at 300 mg b.i.d.. However the patient began to have some elevated blood pressure readings. Investigation from the patient's outpatient pharmacy revealed that the patient had been on labetalol 600 mg b.i.d.. That dosage was re-initiated and her blood pressures were acceptable. The hospitalist were consulted for management of the patient's diabetes postoperatively. The patient had been on metformin prior to and transitioned to insulin. The hospitalist recommendations were to re-initiate her metformin. She is followed by Endocrinology and will follow up with them for further diabetic care. The patient was discharged home on the labetalol 600 mg b.i.d.. She will follow-up in the office in 1 weeks time for a blood pressure check. Metformin was prescribed 500 mg b.i.d.. The patient was instructed to call with any questions problems or difficulties. Coding Level of Care Code None Diagnoses Chronic hypertension affecting O10.919
== END 2020-02-13 13:10 | disposition home or self-care (01) | DRG 786 ==
LOC: 4S1 07:17 → 4S2 02-10 15:11

== ENCOUNTER 2022-07-13 07:54 | Observation (INO) ==
--- NOTE | 2022-07-06 09:25 | Anesthesiology Consultation ---
Date of Service July 06, 2022 Assessment & Plan (1) Encounter for pre-operative examination: Plan - check BSG and urine test STAT am DOS. - endocrinology 06/07/22 MN: "...Pituitary MRI performed in 2019 because of the galactorrhea. Images reviewed, probable left-sided 6 mm lesion. This is almost isodense, but the pituitary on the left is thicker. However, no deviation of the stalk, but the stalk is thick. Repeat pituitary MRI 2021 very similar, though they clearly there is more pituitary tissue - but she is breast-feeding. 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 Plan is to repeat pituitary MRI 3-6 months after she stops ...MAYO'S DISEASE ruled out, Potentially relevant was already in 2019 difficult to control hypertension, hypokalemia, diabetes. Also obesity. However, overnight dexamethasone suppression test normal in October 2021 (0.60 mcg/dL). Urgent testing for Mayo's disease was planned in 2019 while she agreed to defer . Unfortunately became without definitive testing being completed. 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 Calcium had been normal. Family history completely negative. Therefore probably no indication for additional testing...SUBCLINICAL HYPOTHYROIDISM? TSH variable over time 1.7-3.3 IU/mL; most recent January 2022 1.7 IU/mL. Not clearly symptomatic, therefore for now back burner...Most recent TSH unremarkable...we will see her in follow-up after her adrenal surgery..." - Case discussed in detail with Dr. Prado who advised patient is acceptable to proceed with surgery at current status from his standpoint. - COVID screening: Per assessment manager on 07/03/2022: Travel screen negative, no known COVID-19 positive contacts or current COVID-19 related symptoms in past 2 weeks. To surgeon's discretion if preop COVID testing is needed. Chart Review Chart Review: Acceptable Risk for Surgery and Patient NOT seen in Pre Admission Testing History Surgery Operation Date: 07/13/22 08:30 Proposed Procedures p Robotic Adrenalectomy - Kyle Jay, Height/Weight Height: 5 ft 6 in Weight: 122.47 kg Allergies Allergy/AdvReac Type Severity Reaction Status Date / Time sulfamethoxazole Allergy Intermediate Hives Verified 07/03/22 11:29 [From ] trimethoprim [From ] Allergy Intermediate Hives Verified 07/03/22 11:29 Medications Home Medications Medication Instructions Recorded Confirmed Last Taken prenat.vits,zarina,nym-[id number] 1 tab PO QAM 02/09/20 07/03/22 06/01/21 albuterol sulfate 90 mcg/actuation 2 puff inhalation 6XD PRN 04/25/21 07/03/22 Unknown aerosol inhaler (Ventolin HFA) shortness of breath or wheezing #8.5 grams eplerenone 50 mg tablet 50 mg PO BID #180 tabs 01/25/22 07/03/22 Unknown nystatin 100,000 unit/gram topical 1 applic topical TID PRN itching 03/02/22 07/03/22 Unknown powder #60 grams labetalol 200 mg tablet 200 mg PO BID #180 tabs 03/20/22 07/03/22 Unknown clotrimazole-betamethasone 1 1 applic topical BID PRN groin 04/03/22 07/03/22 Unknown %-0.05 % topical cream rash #15 grams fluticasone propionate 110 1 puff inhalation BID #12 grams 05/25/22 07/03/22 Unknown mcg/actuation HFA aerosol inhaler (Flovent HFA) esomeprazole magnesium 20 mg 20 mg PO QAM 07/03/22 07/03/22 Unknown capsule,delayed release (Nexium 24HR) paroxetine HCl 20 mg tablet 20 mg PO QAM 07/03/22 07/03/22 Unknown Past Medical History Medical History Anxiety Asthma Chronic headaches Esophageal reflux Heart palpitations History of COVID-19 History of gestational diabetes HSV (herpes simplex virus) anogenital infection Hx of varicella Hyperaldosteronism Hypertension Pituitary abnormality Subclinical hypothyroidism Past Family History Family History Family/Other Depression Obesity Stroke Multiple gestation Mother Hypertension Diabetes Father Diabetes Grandmother (Maternal) Hypercholesteremia Grandmother (Paternal) Colorectal cancer Aunt Cervical cancer Fleming syndrome, Onset Age: 55 Denies family history of Ovarian cancer Prostate cancer Coronary heart disease Breast cancer Past Surgical History Surgical History S/P section S/P colonoscopy S/P wisdom tooth extraction Social History Smoking Status: Never smoker Do You Dip or Chew Tobacco: No Hx Alcohol Use: No Hx Substance Use: No substance use type: does not use Lab Results Anesthesia Preop Results Results Anesthesia Widget: WBC 10.10 K/ul (4.8-10.8) 07/05/22 Hgb 12.5 g/dl (12.0-16.0) 07/05/22 Hct 37.6 % (37.0-47.0) 07/05/22 Plt 253 K/uL (130-400) 07/05/22 Na 137 mmol/L (136-145) 07/05/22 K 3.8 mmol/L (3.5-5.1) 07/05/22 Cl 105 mmol/L (98-107) 07/05/22 CO2 26 mmol/L (21-32) 07/05/22 BUN 14 mg/dl (6-23) 07/05/22 Creat 0.66 mg/dl (0.6-1.2) 07/05/22 Glucose Level 163 mg/dl (70-99(Fasting)) H 07/05/22 Testing Electrocardiogram Date: 04/24/22 NSR, rate 71 bpm Cannot rule out anterior infarct, age undetermined When compared with 09/17/21 EKG, Vent rate decreased by 47 bpm Minimal criteria for inferior infarct are no longer present Nonspecific T wave abnormality, improved in inferior leads Nonspecific T wave abnormality no longer evident in lateral leads Chest X-Ray Date: 04/24/22 *1view* No acute process Other Testing PFT 05/23/22 Provider notes Adequate test, no obstruction, normal TLC with moderate reduction in ERV Normal DLCO CT abdomen pelvis 12/08/21 1.4 cm left adrenal adenoma Hepatomegaly with moderate hepatic steatosis Head CT, head and neck CTA 11/18/21 1. No acute intracranial abnormality. 2. Unremarkable CT angiogram of the brain. 3. Unremarkable CT angiogram of the neck. MRI sella turcica 11/16/21 9.4 x 8.9 mm heterogeneously enhancing lesion along the left aspect of the pituitary gland, likely representing pituitary microadenoma. No evidence of definite cavernous sinus invasion Mild diffuse thin pachymeningeal enhancement in supratentorial compartment. Nonspecific finding could be related to intracranial hypotension secondary to recent lumbar puncture, infectious/inflammatory disorders and less likely neoplastic etiologies
[~2022-07-13 07:54] MED LIST changes: +LR 15ML/HR IV SCH; -blood pressure med PO
--- NOTE | 2022-07-13 08:22 | History & Physical Bridge Note ---
Date of Service July 13, 2022 History & Physical Bridge Note I have examined the patient, reviewed the History & Physical and in the interval since the performance of the History & Physical I have noted the following changes of clinical significance: no changes noted
[2022-07-13] MEDS ORDERED: fentaNYL citrate PF 100 MCG/2 ML VIAL ONE ×2 (08:48→09:43)
[2022-07-13] MEDS ORDERED: DEXAMETHASONE SOD INJ 4 MG/ML VIAL ONE (08:48)
[2022-07-13] MEDS ORDERED: MIDAZOLAM HCL 1 MG/ML 2ML VIAL ONE (08:48)
[2022-07-13] MEDS ORDERED: PROPOFOL IV EMULSION 10 MG/ML 20 ML VIAL IV ONE ×3 (08:48→13:40)
[2022-07-13] MEDS ORDERED: ONDANSETRON INJ 2 MG/ML 2 ML VIAL ONE (08:48)
[2022-07-13] MEDS ORDERED: LIDOCAINE 2% 2 ML VIAL/AMP(20MG/ML) INFIL ONE ×2 (08:48→13:29)
[2022-07-13] MEDS ORDERED: ROCURONIUM BROMIDE 10 MG/ML 5 ML VIAL IV ONE ×2 (08:48→09:56)
[2022-07-13] MEDS ORDERED: ATROPINE SULFATE 0.1 MG/ML 10ML SYR IV PRN (09:12)
[2022-07-13] MEDS ORDERED: BUPIVACAINE 0.5 % 5 MG/1 ML MPF 30ML VIAL ONE (09:12)
[2022-07-13] MEDS ORDERED: ONDANSETRON INJ 2 MG/ML 2 ML VIAL IV PRN ×2 (09:12→14:14)
[2022-07-13] MEDS ORDERED: HYDROmorphone INJ 2 MG/ML SYR/VIAL IV PRN (09:12)
[2022-07-13] MEDS ORDERED: ePHEDrine sulfate 50 MG/ML AMP IV PRN (09:12)
[2022-07-13] MEDS ORDERED: KETAMINE 50 MG/5 ML SYRINGE ONE (09:54)
[2022-07-13] MEDS ORDERED: SUGAMMADEX SODIUM 200 MG/2 ML VIAL IV ONE (10:05)
[2022-07-13] MEDS ORDERED: KETOROLAC 30 MG/ML VIAL ONE (11:43)
[2022-07-13] MEDS ORDERED: FLOSEAL HEMOSTATIC MATRIX 10ML TOP ONE (12:08)
[2022-07-13] MEDS ORDERED: TISSEEL FIBRIN SEALANT 10ML TOP ONE (12:08)
--- NOTE | 2022-07-13 12:20 | Operative Report ---
PG Post Operative Report Pre & Post Diagnosis Operation Date: 07/13/22 09:30 Pre-Op Diagnosis: Adrenal Nodule, Hyperaldosteronism Post-Op Diagnosis: Adrenal Nodule, Hyperaldosteronism I identified the patient and participated in the time-out.: Yes Procedure Operation Date: 07/13/22 09:30 Actual Procedures p Robotic Assisted Laparoscopic Left Adrenalectomy(Left) - Kyle Jay DO Surgeon Kyle Jay, II, DO Wood Piler LAURA Blanco Estimated Blood Loss 20 Findings Consistent with Post-Op Diagnosis Nodule of the adrenal gland Specimens Left adrenal gland with adenoma Drains 18 Fr Schulte Anesthesia Type General Complications none Disposition Disposition: Recovery Room Indications Patient with adenoma of the adrenal gland. Patient underwent workup for functional status. Patient was specifically worked up for pheochromocytoma which was negative but found to have hyperaldosteronism Risks and benefits discussed at length. Description of Procedure The patient was brought to the operative suite and placed under general endotracheal intubation anesthesia in the supine position. The patient was transferred to lateral position with the left flank exposed. The patient was placed into a flex'ed position and then placed into mild reverse Trendelenberg. At this point, the patient prepped and draped in the usual sterile fashion and a timeout was completed. Preoperative weight based antibiotics had been given. FARHAN's and SCD's were placed on the patient's lower extremities. A catheter was placed by nursing using sterile technique. With the time out completed the patient was flexed and the skin was marked. The camera port site was anesthetized. A small incision was made into the skin and subcutaneous tissues. A Varess needle was selected and placed. The needle was easily moved and it was irrigated and aspirated without any issues or concerns for placement. Insufflation commenced. Once insufflated, the lateral edge of the rectus sheath was marked and anesthetized. The skin was incised and a camera port was placed. The cavity was insufflated to 15 mmHG. The laparoscopic camera was placed and the abdominal cavity inspected. No concerning features were noted. At this point, the skin was marked for port placement and 8mm working ports were placed. The skin was anesthetized down to fascia and an approx 1cm incision was made to place the 2 x 8mm ports. A 12 mm housing assistant property manager port was also placed in similar fashion under direct visualization. The robot was positioned and docked. The camera was placed and all trocars were positioned under direct visualization. Corie Francis was integral in port placement, camera utilization, and docking procedure. She remained in sterile attire and then proceeded to assist the remainder of the case. The colon was mobilized medially to expose the retroperitoneum and the area assessed. Adhesions were freed to allow mobilization. A small amount of adhesions were noted from the colon and were freed. These were dissected with blunt technique. Cautery was used to assist dissection and control bleeding. The retroperitoneal fat was assessed. The adenoma as well as the Aorta and IVC were identified. Care was taken to dissect the gonadal vein. This was then followed superiorly. Dissection stayed toward the midline and the ureter and gonadal vein were avoided. The dissection was followed to the renal pelvis. The Renal Vein was identified and exposed. The adrenal vein was identified. Dissection was taken further superior. The adenoma was monitored as well as the adrenal gland. This was then mobilized and care was taken to slowly dissect between the adenoma/adrenal gland and the aorta. The Adrenal vein was identified again going to the adrenal gland and it was cleared and assessed. Two hemolock clips were used to clamp the vein. No changes in heart rate or blood pressure occurred with placement of the clips. A third clip was placed distally. The vein was then transected. The adrenal gland with the adenoma was then slowly dissected. Small vessels were ligated and cut as dissection progressed. An additional larger vessel likely another adrenal vein was clipped and cut. The posterior, inferior, and superior surfaces were dissected free. No major bleeding or other issues. The specimen was placed into a catch bag and set to the side. Surgicel hemostatic agent sheets were placed under the spleen, above the kidney, and on the incised edge of the retroperitoneum. Hemostatic agents Tisseel and Floseal were also placed. Hemostatic agent was also placed on the left renal vein and the adrenal vein stump. No major bleeding or other issues. The entire dissection space was inspected one final time. No bleeding or injuries or areas of concern were noted. No tumor or other concerning features were noted. The kidney appeared to be without injury or area of concern. At this point, the robot was undocked and moved away from the patient. The port sites were all assessed laparoscopically. The endoscopic bag was moved into the midline housing assistant property manager port. The 12 mm port site was partially closed with the Gustavo Denson device and a 1-0 Vicryl suture. The other ports were assessed and no issues observed. The midline incision was opened further exposing fascia which was then opened in order to removed the mass within the bag. A running 1-0 PDS suture was used to close fascia. The subcutaneous tissues were closed with a running 1-0 suture. The skin at each site was closed with a stapling device. The area was cleaned and bandage placed on each incision. The patient was cleaned and bandaged. He was moved back into the supine position The patient was cleaned, aroused from anesthesia, and transferred to the pacu in stable condition having tolerated the procedure well with no complications. I was present and participated in all aspects of the procedure. LAURA Anders was critical in the portions as mentioned above. Plan to admit and monitor overnight. May need blood pressure medications adjusted with management of the hyperaldosteronism. Plan followup in approx 7 days for staple removal. I attest to the content of the Intraoperative Record and any orders documented therein. Any exceptions are noted below.
[2022-07-13] MEDS: fentaNYL citrate PF 100 MCG/2 ML VIAL IV PRN ×2 (12:35→12:54)
[2022-07-13 12:54] LABS: Basophils # (auto) 0.08 K/uL (0-0.2); Basophils % (auto) 0.7 %; Eosinophils # (auto) 0.04 K/uL (0-0.50); Eosinophils % (auto) 0.4 %; Hematocrit (blood only) 39.1 % (37.0-47.0); Hemoglobin 12.7 g/dl (12.0-16.0); Immature Granulocytes # (auto) 0.06 K/uL (0.01-0.20); Immature Granulocytes % (auto) 0.5 %; Lymphocytes # (auto) 1.86 K/uL (1.2-3.4); Lymphocytes % (auto) 16.4 %; Mean Corpuscular Hemoglobin 26.5 pg (25.0-34.0); Mean Corpuscular Hgb Conc 32.5 g/dL (32.0-36.0); Mean Corpuscular Volume 81.5 fL (80.0-100.0); Monocytes # (auto) 0.23 K/uL (0.11-0.59); Neutrophils # (auto) 9.09 K/uL (1.40-6.50); Platelet Count 239 K/uL (130-400); RDW Coefficient of Variation 13.2 % (11.5-14.5); White Blood Count 11.36 K/ul (4.8-10.8)
[2022-07-13 13:08] LABS: BUN Creatinine Ratio 17.5 (10-20); Calcium 9.1 mg/dl (8.6-10.3); Creatinine Clr Calc Pharmacy 133.3 ml/min; Est GFR (African American) 112.3 ml/min; Est GFR (Non-African American) 96.9 ml/min; Potassium 4.3 mmol/L (3.5-5.1)
[2022-07-13] MEDS ORDERED: SUCCINYLCHOLINE CHLORIDE 20 MG/ML 10 ML VIAL IV ONE (13:41)
[2022-07-13] MEDS ORDERED: METOPROLOL TARTRATE 1 MG/ML VIAL IV ONE (13:57)
[2022-07-13] MEDS ORDERED: oxyCODONE/ACETAMINOPHEN 5mg/325mg TAB PO PRN (14:14)
[2022-07-13] MEDS ORDERED: MoRPHine SULFATE 2 MG/ML CARP IV PRN (14:14)
[2022-07-13] MEDS ORDERED: ALBUTEROL HFA 8 GM INHALER INH PRN (14:14)
[2022-07-13] MEDS ORDERED: MoRPHine SULFATE 4 MG/ML 1 ML CARP\\VIAL IV PRN (14:14)
[2022-07-13] MEDS ORDERED: DEXTROSE 50% 50 ML SYRINGE IV PRN (14:51)
[2022-07-13] MEDS ORDERED: GLUCAGON FOR INJ 1 MG VIAL SQ PRN (14:51)
[2022-07-13] MEDS ORDERED: PHARMACY GLYCEMIC MGMT CONSULT PRN (14:51)
[2022-07-13] MEDS ORDERED: GLUCOSE 40% GEL 15 GM TUBE PO PRN (14:51)
[2022-07-13] MEDS ORDERED: GLUCOSE 10 TAB/TUBE PO PRN (14:51)
[2022-07-13] MEDS ORDERED: CARBOHYDRATES FOR HYPOGLYCEMIA PO PRN (14:51)
--- NOTE | 2022-07-13 14:55 | History & Physical Report ---
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 twice daily, labetalol 200 mg p.o. twice daily Antihypertensive requirement should be reduced with removal of underlying renal nodule. Hold eplerenone. Continue labetalol 200 mg p.o. twice daily, hold x1 for SBP less than 100 and dose reduce, dose reduce for SBP less than 120. Contact provider for assessment if BP >180 despite home meds. Normotensive at bedside assessment. Trend creatinine daily, preop 0.80 with no history of CKD - BMP daily, K 4.3 on 07/13 Impaired fasting glucose/hx gestational DM POC glucose 152 preop, 182 serum A1c pending, last A1c 6.4% Type II DM diet Weight-based SSI slightly loosened due to borderline BSG and risk of hypoglycemia ordered with pharmacy consult for close follow-up and management postoperativly Galactorrhea, pituitary tumor MRI 2019 with evidence of 6 mm lesion. Repeat 2021 with increased pituitary tissue without VP RHEUMATOLOGY symptoms. Last seen for follow-up 06/07/2022. Continued on MRI 3-6 months after cessation of breast-feeding. No bitemporal hemianopsia/vision changes on clinical evaluation continue to follow for development of neurologic deficits/vision change/headache. Prolactin check 3 months after cessation of breast-feeding Intermittent asthma PFTs 05/23/2022: FVC 4.21 (100% predicted), FEV1 3.72 (106% predicted), FEV1/FVC 88.4. Normal DLCO, no obstructive disease noted. Continue fluticasone inhaler twice daily Continue albuterol as needed - Suspect BMI hypoventilation, may use CPAP qHS if evening desaturations Mild acute hypoxia postoperatively Received 1550 cc total fluids, so far with 1570 output and 20 cc of blood loss. Net volume -40 cc Patient is with 1 L postop nasal cannula requirement, suspect atelectatic. Inspiratory spirometry every hour, if persistent obtain CXR 07/14 No history of heart failure GERD Continue PPI ->converted to Protonix 40 mg while inpatient Anxiety/depression Continue paroxetine daily (2) Hypertension: (3) History of gestational diabetes: (4) Adrenal nodule: (5) Class 3 obesity: (6) Pituitary abnormality: Admission and Anticipated Discharge Date Admission Date: July 13, 2022 History of Present Illness Primary Care Provider: LAURA Gardner Becka is a 31-year-old female with a past medical history of hyperaldosteronism, adrenal nodule, gestational diabetes, subclinical hypothyroidism, asthma, galactorrhea, and stable 6 mm pituitary lesion who presented to [facility] for left robot-assisted laparoscopic adrenalectomy 2/2 adrenal nodule with hyperaldosteronism. We are consulted for postoperative medical management. Operative left adrenalectomy with estimated 20 cc of blood loss, had no complications, and no significant bleeding was noted intraoperatively. Seen postop. Mild pain at incisions, denies other pain. No headache. No shortness of breath, feels slight chest congestion. No chest pain/chest pressure. No vision change/field cuts. No bitemporal hemianopsia. Reports she is weaning breast feeding so she can have repeat imaging of her pituitary. Has had rebound tachycardia with labetelol held in the past, denies current palpitations. Hungry, no nausea. No BM yet postop. +flatus. Has had gestational DM before, is not currently on insulin. Medical History: Reviewed Medications: Reviewed Surgical History: Reviewed Family history: Reviewed Allergies: Reviewed Social History: No tobacco/etoh use Code Status: Full Allergies Allergy/AdvReac Type Severity Reaction Status Date / Time sulfamethoxazole Allergy Intermediate Hives Verified 07/13/22 08:22 [From ] trimethoprim [From ] Allergy Intermediate Hives Verified 07/13/22 08:22 Home Medications Medication Instructions Recorded Confirmed Type prenat.vits,zarina,[id number] 1 tab PO QAM 02/09/20 07/13/22 History albuterol sulfate 90 mcg/actuation 2 puff inhalation 6XD PRN 04/25/21 07/13/22 Rx aerosol inhaler (Ventolin HFA) shortness of breath or wheezing #8.5 grams nystatin 100,000 unit/gram topical 1 applic topical TID PRN itching 03/02/22 07/13/22 Rx powder #60 grams labetalol 200 mg tablet 200 mg PO BID #180 tabs 03/20/22 07/13/22 Rx clotrimazole-betamethasone 1 1 applic topical BID PRN groin 04/03/22 07/13/22 Rx %-0.05 % topical cream rash #15 grams fluticasone propionate 110 1 puff inhalation BID #12 grams 05/25/22 07/13/22 Rx mcg/actuation HFA aerosol inhaler (Flovent HFA) esomeprazole magnesium 20 mg 20 mg PO QAM 07/03/22 07/13/22 History capsule,delayed release (Nexium 24HR) paroxetine HCl 20 mg tablet (Paxil) 20 mg PO QAM 07/03/22 07/13/22 History eplerenone 50 mg tablet (Inspra) 50 mg PO BID 07/13/22 07/13/22 History Past Med/Surg History Medical History Anxiety Asthma rare res inh use Chronic headaches Esophageal reflux Heart palpitations resolved per pt > no cardio History of COVID-13 Feb 2021 > not hospitalized History of gestational diabetes resolved HSV (herpes simplex virus) anogenital infection no infections at present Hx of varicella Hyperaldosteronism Hypertension Pituitary abnormality possilbe tumor, waiting until finished breast feeding to further investigate per pt Subclinical hypothyroidism Surgical History S/P section x2 S/P colonoscopy S/P wisdom tooth extraction Family History Family/Other Depression Obesity Stroke Multiple gestation Mother Hypertension Diabetes Father Diabetes Grandmother (Maternal) Hypercholesteremia Grandmother (Paternal) Colorectal cancer Aunt Cervical cancer Fleming syndrome, Onset Age: 55 paternal aunt Denies family history of Ovarian cancer Prostate cancer Coronary heart disease Breast cancer Social History Smoking Status: Never smoker Second Hand Exposure: No; Do You Dip or Chew Tobacco: No; Tobacco Cessation Education Requested by Patient: No Hx Alcohol Use: No Hx Substance Use: No Preferred Language: Chinese Communication Ability: Effective Visual Impairment: No Limitations Hearing Ability: Normal Woods Superintendent Required: No Beliefs That Will Affect Care: None marital status: Single marital status details: JERMAINE Buchanan (33) [phone] Current Living Situation: Significant Other Current Living Situation Comment: lives with fob, son, 2 dogs, 1 cat, fob to change litter. 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 NAD. Cooperative. HEENT: Atraumatic, normocephalic. Vision/hearing intact. No field cuts, no bitemporal hemianopsia. Pulm:Dimimnished but -wheezes, -rales, -rhonchi. Symmetrical chest rise. No increased work of breathing. No respiratory distress. Cardiac: RRR, -mrg. Radial pulses intact and symmetrical. Abdominal: +well dressed lap incisions, mild post op tenderness w/o karissa ound/guarding. Abd soft. Ext: warm, dry. Moving all extremities equally. Results & Data Results & Data Vital Signs (Past 12 Hours) Vital Signs Temp Pulse Pulse Resp BP Pulse Ox O2 Del Method 07/13/22 14:00 Nasal Cannula 07/13/22 14:00 36.7 C 81 16 138/90 96 Nasal Cannula 07/13/22 14:30 36.8 C 84 16 145/86 H 95 Nasal Cannula 07/13/22 13:45 36.6 C 87 15 147/89 H 95 Nasal Cannula 07/13/22 13:20 36.3 C L 80 12 143/87 H 95 Nasal Cannula 07/13/22 13:10 83 15 149/71 H 95 Nasal Cannula 07/13/22 13:00 83 12 131/84 95 Nasal Cannula 07/13/22 12:50 80 15 137/83 95 Nasal Cannula 07/13/22 12:40 81 16 136/84 96 Nasal Cannula 07/13/22 12:30 82 16 160/94 H 95 Nasal Cannula 07/13/22 13:30 77 14 139/88 95 Nasal Cannula 07/13/22 12:23 36.3 C L 77 20 155/90 H 96 Oxymask 07/13/22 08:24 36.9 C 69 18 168/105 H 97 Room Air O2 Flow Rate 07/13/22 14:00 2 07/13/22 14:00 2 07/13/22 14:30 1 07/13/22 13:45 2 07/13/22 13:20 2 07/13/22 13:10 2 07/13/22 13:00 2 07/13/22 12:50 2 07/13/22 12:40 4 07/13/22 12:30 4 07/13/22 13:30 2 07/13/22 12:23 6 07/13/22 08:24 Code Status & VTE Plan VTE Prophylaxis Plan VTE Prophylaxis will be ordered: Yes PG Care Time/CCT Total # of Minutes Spent Total Time Spent with Patient: Total time spent is greater than 50% in coordination of care (as documented) at patient's floor/unit and/or counseling patient: Coding Level of Care Code 01635 INT INP/OBS CARE 3/75MIN Diagnoses Hyperaldosteronism E26.9 Hypertension I10 History of gestational diabetes Z86.32 Adrenal nodule E27.8 Class 3 obesity E66.01 Pituitary abnormality E23.7
[2022-07-13] MEDS: D5W AND 1/2NSS + 20MEQ KCL 20 MEQ/1,000 ML BAG IV SCH (15:10)
[2022-07-13] MEDS: FLUTICASONE FUROATE 200MCG 14 PUFFS/INHALER INH SCH (15:12)
[2022-07-13] MEDS: DOCUSATE SODIUM 100 MG CAP PO SCH ×2 (15:12→21:02)
[2022-07-13] MEDS: PRENATAL VITAMIN 1 TAB PO SCH (15:17)
--- NOTE | 2022-07-13 15:19 | Pharmacy Report ---
Pharmacy Glycemic Short Note 2 - Date of Service July 13, 2022 - Glycemic Short BSG Results (Last 24 hours): 07/13/22 07/13/22 08:14 12:33 Glucose 181 H POC Glucose 152 H OUTPATIENT ANTIDIABETIC REGIMEN: * none * A1c pending (A1c : 6.4%) ASSESSMENT: * Becka is a 31 yo female s/p left robot-assisted laparoscopic adrenalectomy 2/2 adrenal nodule with hyperaldosteronism. Of note, patient does have a history of gestational diabetes. Elevated fasting BSG this morning prior to surgery, 152 mg/dL. A1c pending. * Dexamethasone 8 mg IV was removed from omnicell during surgical procedure this morning. * Will start patient on weight based Novolog per CF and CR. Will order a single dose of basal insulin to be given only if BSG remains >180 mg/dL (conservative dose based on insulin naive, clear liquid diet, and diagnosis of DM not yet made). PLAN FOR INPATIENT GLYCEMIC CONTROL: * Basal insulin * Lantus 0-12-15 SQ with dinner x 1 * 0 units for BSG < 180 * 12 units for BSG 180-220 * 15 unis for BSG > 220 * Bolus insulin * NovoLog per scale ACHS or Q6hrs while NPO * Goal Range: Low 110 mg/dL - High 140 mg/dL * Correction Factor: 30 mg/dL/unit * Nutritional / Prandial insulin per carb ratio of 1 unit per 9 grams CHO consumed
--- NOTE | 2022-07-13 15:21 | Anesthesiology Progress Note ---
Date of Service July 13, 2022 Anesthesia Post Procedure Vital Signs Vital Signs: Temp Pulse Pulse Resp BP Pulse Ox O2 Del Method 07/13/22 14:00 Nasal Cannula 07/13/22 14:00 36.7 C 81 16 138/90 96 Nasal Cannula 07/13/22 15:00 36.7 C 80 18 135/85 96 Nasal Cannula 07/13/22 14:30 36.8 C 84 16 145/86 H 95 Nasal Cannula 07/13/22 13:45 36.6 C 87 15 147/89 H 95 Nasal Cannula 07/13/22 13:20 36.3 C L 80 12 143/87 H 95 Nasal Cannula 07/13/22 13:10 83 15 149/71 H 95 Nasal Cannula 07/13/22 13:00 83 12 131/84 95 Nasal Cannula 07/13/22 12:50 80 15 137/83 95 Nasal Cannula 07/13/22 12:40 81 16 136/84 96 Nasal Cannula 07/13/22 12:30 82 16 160/94 H 95 Nasal Cannula 07/13/22 13:30 77 14 139/88 95 Nasal Cannula 07/13/22 12:23 36.3 C L 77 20 155/90 H 96 Oxymask 07/13/22 08:24 36.9 C 69 18 168/105 H 97 Room Air O2 Flow Rate 07/13/22 14:00 2 07/13/22 14:00 2 07/13/22 15:00 1 07/13/22 14:30 1 07/13/22 13:45 2 07/13/22 13:20 2 07/13/22 13:10 2 07/13/22 13:00 2 07/13/22 12:50 2 07/13/22 12:40 4 07/13/22 12:30 4 07/13/22 13:30 2 07/13/22 12:23 6 07/13/22 08:24 Pain Intensity Abdomen: Pain Intensity: 3 Transfer of Care Handoff Completed per policy Notes Mental Status: alert / awake / arousable and participated in evaluation Patient Amnestic to Procedure: Yes Nausea / Vomiting: adequately controlled Pain: adequately controlled Airway Patency, RR, SpO2: stable & adequate BP & HR: stable & adequate Hydration State: stable & adequate Anesthetic Complications: no major complications apparent and Pt Satisfied with anesthetic care
[2022-07-13] MEDS ORDERED: LANTUS PER UNIT CHARGE SC SCH (17:00)
[2022-07-13] MEDS: ceFAZolin 2000MG 2,000 MG/15 ML SYR IV SCH (17:34)
[2022-07-13] MEDS: INSULIN ASPART PER UNIT CHARGE SC SCH ×2 (17:38→21:02)
[2022-07-13] MEDS: HEPARIN SOD 5,000 UNIT/0.5 ML VIAL SQ SCH (21:02)
[2022-07-13] MEDS: LABETALOL HCL 200 MG TAB PO SCH (21:02)
[2022-07-14] MEDS: ceFAZolin 2000MG 2,000 MG/15 ML SYR IV SCH ×2 (00:47→11:16)
[2022-07-14] MEDS: D5W AND 1/2NSS + 20MEQ KCL 20 MEQ/1,000 ML BAG IV SCH (04:06)
--- NOTE | 2022-07-14 08:01 | Hospitalist Progress Note ---
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 twice daily, labetalol 200 mg p.o. twice daily POD# 1 s/p Robotic Assisted Laparoscopic Left Adrenalectomy(Left) - Kyle Jay, DO EBL 20cc WBC elevation likely from surgery, afebrile. No fever/chills, infectous symtpoms Hgb stable 11.7 from 12.7 pre-op -- likely acute blood loss from surgery as well as dilutional as has been on IVF Kidney function stable on repeat K 3.8, mag 1.7 Antihypertensive requirement should be reduced with removal of underlying renal nodule. --> Eplerenone held and rec stopping at d/c as BPs remaining stable off this. Would continue labetalol for now at d/c and have close f/u PCP in the week.Relayed this to Urology MARCELLO. Impaired fasting glucose/hx gestational DM Glucose 152 pre-op, 182 on serum On DM diet A1c 6.4 -- outpatient f/u PCP. BSGs acceptable Galactorrhea, pituitary tumor MRI 2019 with evidence of 6 mm lesion. Repeat 2021 with increased pituitary tissue without [employer] symptoms. Last seen for follow-up 06/07/2022. Continued on MRI 3-6 months after cessation of breast-feeding. No bitemporal hemianopsia/vision changes on clinical evaluation continue to follow for development of neurologic deficits/vision change/headache. Prolactin check 3 months after cessation of breast-feeding Intermittent asthma PFTs 05/23/2022: FVC 4.21 (100% predicted), FEV1 3.72 (106% predicted), FEV1/FVC 88.4. Normal DLCO, no obstructive disease noted. Continue fluticasone inhaler twice daily Continue albuterol as needed - Suspect BMI hypoventilation, may use CPAP qHS if evening desaturations Mild acute hypoxia postoperatively Received 1550 cc total fluids, so far with 1570 output and 20 cc of blood loss. Net volume -40 cc Titrated to room air, no issues on exam, no hx CHF GERD Continue PPI ->converted to Protonix 40 mg while inpatient Anxiety/depression Continue paroxetine daily Thank you for allowing hospitalist service to participate in the care of Ms Quinn. Hospitalist service rec stopping the eplerenone at d/c, continue labetalol for now. Close f/u PCP for HTN/med management and f/u A1c 6.4 Hospitalist service will sign off at this time as appears patient stable and likely for dc if no issues w/ dias removal. Please call with any questions/concern. (2) Hypertension: (3) History of gestational diabetes: (4) Adrenal nodule: (5) Class 3 obesity: (6) Pituitary abnormality: Admission and Anticipated Discharge Date Admission Date: July 13, 2022 Supervising Physician Co-Signing Physician Notes The patient was not seen by me. The chart was reviewed. Case discussed with RHINA Duarte. Agree with assessment and plan Subjective Eval this morning. Doing well. Pain controlled with ordered meds. Had 2 c-sections in the past so she said this pain isn't anything. Passing gas but no BM. She states they plan on removing dias this morning and she is hoping to get to bathroom to get cleaned up. No fever/chills, chest pain, shortness of breath, nausea, vomiting or other complaints at this time. Saw blood donor unit assistant from urology but not doc yet -- not sure if dc today or not. Will touch base w/ provider. Physical Exam Physical Exam: General: WD/WN obese female sitting up in bed, NAD HEENT: head atraumatic, normocephalic, mmm, trachea midline Resp: CTA, no w/c/r, on room air CV: RRR, no significant m/r/g, no pitting edema, calves nontender GI: +BS, soft, appropriately tender (minimal) to incisions, no evidence for infection/erythema/drainage. german in place : dias with clear yellow urine draining MSK/Neuro: no focal deficits, follows commands, strength intact bilaterally Psych: AOx3, cooperative with exam Results & Data Results & Data Vital Signs (Past 12 Hours) Vital Signs Temp Pulse Pulse Pulse Resp BP BP 07/14/22 07:49 36.8 C 71 16 132/78 07/14/22 07:14 36.8 C 73 18 137/81 07/14/22 02:33 36.9 C 84 16 124/70 07/13/22 22:22 37 C 85 18 135/70 Pulse Ox O2 Del Method 07/14/22 07:49 97 Room Air 07/14/22 07:14 96 Room Air 07/14/22 02:33 95 Room Air 07/13/22 22:22 96 Room Air Laboratory Results 07/14/22 07/14/22 07/14/22 Range/Units 08:02 05:53 05:53 WBC 13.64 H (4.8-10.8) K/ul RBC 4.42 (4.20-5.40) M/uL Hgb 11.7 L (12.0-16.0) g/dl Hct 35.9 L (37.0-47.0) % MCV 81.2 (80.0-100.0) fL MCH 26.5 (25.0-34.0) pg MCHC 32.6 (32.0-36.0) g/dL RDW Std Deviation 39.7 (36.4-46.3) fL RDW Coeff of Susana 13.3 (11.5-14.5) % Plt Count 257 (130-400) K/uL MPV 10.2 (9.4-12.4) fL Immature Gran % (Auto) % Neut % (Auto) % Lymph % (Auto) % [place] % (Auto) % Eos % (Auto) % Baso % (Auto) % Neut # (Auto) (1.40-6.50) K/uL Lymph # (Auto) (1.2-3.4) K/uL [place] # (Auto) (0.11-0.59) K/uL Eos # (Auto) (0-0.50) K/uL Baso # (Auto) (0-0.2) K/uL Immature Gran # (Auto) (0.01-0.20) K/uL Sodium 138 (136-145) mmol/L Potassium 3.8 (3.5-5.1) mmol/L Chloride 106 (98-107) mmol/L Carbon Dioxide 27 (21-32) mmol/L Anion Gap 5 (3-11) BUN 12 (6-23) mg/dl Creatinine 0.70 (0.6-1.2) mg/dl Est Cr Clr Drug Dosing 152.3 ml/min Est GFR ( Amer) 131.9 ml/min Est GFR (Non-Af Amer) 113.8 ml/min BUN/Creatinine Ratio 17.1 (10-20) Glucose 155 H (70-99(Fasting)) mg/dl POC Glucose 186 H (70-99) mg/dl Estimat Average Glucose mg/dl Hemoglobin A1c (4.5-5.6) % Calcium 9.0 (8.6-10.3) mg/dl Magnesium 1.7 (1.7-2.4) mg/dl 07/14/22 07/13/22 07/13/22 Range/Units 05:47 20:08 17:04 WBC (4.8-10.8) K/ul RBC (4.20-5.40) M/uL Hgb (12.0-16.0) g/dl Hct (37.0-47.0) % MCV (80.0-100.0) fL MCH (25.0-34.0) pg MCHC (32.0-36.0) g/dL RDW Std Deviation (36.4-46.3) fL RDW Coeff of Susana (11.5-14.5) % Plt Count (130-400) K/uL MPV (9.4-12.4) fL Immature Gran % (Auto) % Neut % (Auto) % Lymph % (Auto) % [place] % (Auto) % Eos % (Auto) % Baso % (Auto) % Neut # (Auto) (1.40-6.50) K/uL Lymph # (Auto) (1.2-3.4) K/uL [place] # (Auto) (0.11-0.59) K/uL Eos # (Auto) (0-0.50) K/uL Baso # (Auto) (0-0.2) K/uL Immature Gran # (Auto) (0.01-0.20) K/uL Sodium (136-145) mmol/L Potassium (3.5-5.1) mmol/L Chloride (98-107) mmol/L Carbon Dioxide (21-32) mmol/L Anion Gap (3-11) BUN (6-23) mg/dl Creatinine (0.6-1.2) mg/dl Est Cr Clr Drug Dosing ml/min Est GFR ( Amer) ml/min Est GFR (Non-Af Amer) ml/min BUN/Creatinine Ratio (10-20) Glucose (70-99(Fasting)) mg/dl POC Glucose 197 H 194 H (70-99) mg/dl Estimat Average Glucose 137 mg/dl Hemoglobin A1c 6.4 H (4.5-5.6) % Calcium (8.6-10.3) mg/dl Magnesium (1.7-2.4) mg/dl 07/13/22 07/13/22 Range/Units 12:33 12:33 WBC 11.36 H (4.8-10.8) K/ul RBC 4.80 (4.20-5.40) M/uL Hgb 12.7 (12.0-16.0) g/dl Hct 39.1 (37.0-47.0) % MCV 81.5 (80.0-100.0) fL MCH 26.5 (25.0-34.0) pg MCHC 32.5 (32.0-36.0) g/dL RDW Std Deviation 39.0 (36.4-46.3) fL RDW Coeff of Susana 13.2 (11.5-14.5) % Plt Count 239 (130-400) K/uL MPV 10.0 (9.4-12.4) fL Immature Gran % (Auto) 0.5 % Neut % (Auto) 80.0 % Lymph % (Auto) 16.4 % [place] % (Auto) 2.0 % Eos % (Auto) 0.4 % Baso % (Auto) 0.7 % Neut # (Auto) 9.09 H (1.40-6.50) K/uL Lymph # (Auto) 1.86 (1.2-3.4) K/uL [place] # (Auto) 0.23 (0.11-0.59) K/uL Eos # (Auto) 0.04 (0-0.50) K/uL Baso # (Auto) 0.08 (0-0.2) K/uL Immature Gran # (Auto) 0.06 (0.01-0.20) K/uL Sodium 139 (136-145) mmol/L Potassium 4.3 (3.5-5.1) mmol/L Chloride 106 (98-107) mmol/L Carbon Dioxide 25 (21-32) mmol/L Anion Gap 8 (3-11) BUN 14 (6-23) mg/dl Creatinine 0.80 (0.6-1.2) mg/dl Est Cr Clr Drug Dosing 133.3 ml/min Est GFR ( Amer) 112.3 ml/min Est GFR (Non-Af Amer) 96.9 ml/min BUN/Creatinine Ratio 17.5 (10-20) Glucose 181 H (70-99(Fasting)) mg/dl POC Glucose (70-99) mg/dl Estimat Average Glucose mg/dl Hemoglobin A1c (4.5-5.6) % Calcium 9.1 (8.6-10.3) mg/dl Magnesium (1.7-2.4) mg/dl PG Care Time/CCT Total # of Minutes Spent Total Time Spent with Patient: Total time spent is greater than 50% in coordination of care (as documented) at patient's floor/unit and/or counseling patient: Coding Level of Care Code 29076 SUB INP/OBS CARE 2/35MIN Diagnoses Hyperaldosteronism E26.9 Hypertension I10 History of gestational diabetes Z86.32 Adrenal nodule E27.8 Class 3 obesity E66.01 Pituitary abnormality E23.7
[2022-07-14 08:08] LABS: Hematocrit (blood only) 35.9 % (37.0-47.0); Hemoglobin 11.7 g/dl (12.0-16.0); Mean Corpuscular Hemoglobin 26.5 pg (25.0-34.0); Mean Corpuscular Hgb Conc 32.6 g/dL (32.0-36.0); Mean Corpuscular Volume 81.2 fL (80.0-100.0); Mean Platelet Volume 10.2 fL (9.4-12.4); Platelet Count 257 K/uL (130-400); RDW Coefficient of Variation 13.3 % (11.5-14.5); RDW Standard Deviation 39.7 fL (36.4-46.3); Red Blood Count 4.42 M/uL (4.20-5.40); White Blood Count 13.64 K/ul (4.8-10.8)
[2022-07-14 08:12] LABS: BUN Creatinine Ratio 17.1 (10-20); Creatinine Clr Calc Pharmacy 152.3 ml/min; Est GFR (African American) 131.9 ml/min; Est GFR (Non-African American) 113.8 ml/min; Potassium 3.8 mmol/L (3.5-5.1)
[2022-07-14 08:22] LABS: Estimated Average Glucose 137 mg/dl; Hemoglobin A1C 6.4 % (4.5-5.6)
[2022-07-14] MEDS: FLUTICASONE FUROATE 200MCG 14 PUFFS/INHALER INH SCH (08:58)
[2022-07-14] MEDS: PRENATAL VITAMIN 1 TAB PO SCH (08:58)
[2022-07-14] MEDS: HEPARIN SOD 5,000 UNIT/0.5 ML VIAL SQ SCH (08:59)
[2022-07-14] MEDS: DOCUSATE SODIUM 100 MG CAP PO SCH (08:59)
[2022-07-14] MEDS: LABETALOL HCL 200 MG TAB PO SCH (08:59)
[2022-07-14] MEDS ORDERED: PARoxetine HCL 20 MG TAB PO SCH (09:00)
[2022-07-14] MEDS ORDERED: PANTOprazole 40 MG TAB PO SCH (09:00)
[2022-07-14] MEDS ORDERED: LANTUS PER UNIT CHARGE SC SCH (09:00)
[2022-07-14] MEDS: INSULIN ASPART PER UNIT CHARGE SC SCH ×2 (09:05→13:04)
--- NOTE | 2022-07-14 09:34 | Urology Progress Note ---
Date of Service July 14, 2022 Assessment & Plan (1) Adrenal nodule: Plan: - Pt POD#1 s/p left adrenalectomy with Dr. Jay. - Doing well, progressing as expected. - Afebrile, vitals stable - normotensive this AM. - Lab work reviewed - creatinine 0.70, potassium 3.8, WBC 13.64, hemoglobin 11.7. - Pain control is adequate. - Tolerating regular diet. - Continue OOB ambulation. - Schulte out this AM, monitor for void. - Hospitalists following for medical management - appreciate recommendations. - Will plan to stop Eplerenone. Continue other BP medications upon discharge. Follow-up with PCP within 1 week. - Anticipate home later today if she continues to progress as expected. - Expected clinical course reviewed, all questions answered Admission and Anticipated Discharge Date Admission Date: July 13, 2022 Subjective Patient postop day 1 status post left adrenalectomy. No acute issues overnight. Patient reports some mild discomfort near incisions and some gas/pressure at right upper abdomen. She is passing flatus. Tolerating diet, no nausea or vomiting. She has been ambulating without difficulty. No fever or chills. F oley patent and draining clear yellow urine. Review of Systems Constitutional: as per Subjective / HPI Gastrointestinal: as per Subjective / HPI Genitourinary: as per Subjective / HPI Physical Exam Constitutional: well developed and well nourished; no acute distress Respiratory: normal respiratory effort; no respiratory distress and no labored breathing Gastrointestinal (Abdomen): Inspection/Auscultation: abdomen normal to inspection; abdomen not distended Percussion/Palpation: abdomen soft appropriately tender near incisions Musculoskeletal: Head/Neck/Chest: normocephalic and head atraumatic Skin: Surgical dressings C/D/I. Dressings removed for exam. Surgical incisions appear healthy and well approximated with german. No erythema or drainage. Neurologic: moves all extremities and awake Psychiatric: Orientation: alert and oriented x 3 Genitourinary: Schulte patent and draining clear yellow urine Results & Data Vital Signs (Past 12 Hours) Vital Signs Temp Pulse Pulse Pulse Resp BP BP 07/14/22 07:49 36.8 C 71 16 132/78 07/14/22 07:14 36.8 C 73 18 137/81 07/14/22 02:33 36.9 C 84 16 124/70 07/13/22 22:22 37 C 85 18 135/70 Pulse Ox O2 Del Method 07/14/22 07:49 97 Room Air 07/14/22 07:14 96 Room Air 07/14/22 02:33 95 Room Air 07/13/22 22:22 96 Room Air PG Care Time/CCT Total # of Minutes Spent Total Time Spent with Patient: Total time spent is greater than 50% in coordination of care (as documented) at patient's floor/unit and/or counseling patient: Coding Level of Care Code None Diagnoses Adrenal nodule E27.8
[2022-07-14 09:38] LABS: Magnesium 1.7 mg/dl (1.7-2.4)
--- NOTE | 2022-07-14 12:17 | Discharge Summary ---
Date of Service July 14, 2022 Admission HPI Per Admitting Provider Becka is a 31-year-old female with a past medical history of hyperaldosteronism, adrenal nodule, gestational diabetes, subclinical hypothyroidism, asthma, galactorrhea, and stable 6 mm pituitary lesion who presented to [facility] for left robot-assisted laparoscopic adrenalectomy 2/2 adrenal nodule with hyperaldosteronism. We are consulted for postoperative medical management. Operative left adrenalectomy with estimated 20 cc of blood loss, had no complications, and no significant bleeding was noted intraoperatively. Seen postop. Mild pain at incisions, denies other pain. No headache. No sh ortness of breath, feels slight chest congestion. No chest pain/chest pressure. No vision change/field cuts. No bitemporal hemianopsia. Reports she is weaning breast feeding so she can have repeat imaging of her pituitary. Has had rebound tachycardia with labetelol held in the past, denies current palpitations. Hungry, no nausea. No BM yet postop. +flatus. Has had gestational DM before, is not currently on insulin. Medical History: Reviewed Medications: Reviewed Surgical History: Reviewed Family history: Reviewed Allergies: Reviewed Social History: No tobacco/etoh use Code Status: Full Admission Exam Per Admitting Provider General: Alert in no acute distress. HEENT: Inspection normal Psychologic: Normal affect. Respiratory: Nonlabored. No use of accessory muscles. Skin: [place] and Dry. No rashes or visible lesions. Principal Diagnosis Adrenal nodule, hyperaldosteronism Discharge Exam Constitutional well developed and well nourished; no acute distress Respiratory normal respiratory effort; no respiratory distress and no labored breathing Gastrointestinal (Abdomen) Inspection/Auscultation: abdomen normal to inspection; abdomen not distended Percussion/Palpation: abdomen soft Musculoskeletal Head/Neck/Chest: normocephalic and head atraumatic Neurologic moves all extremities and awake Psychiatric Orientation: alert and oriented x 3 Discharge Data Allergies Allergy/AdvReac Type Severity Reaction Status Date / Time sulfamethoxazole Allergy Intermediate Hives Verified 07/13/22 08:22 [From ] trimethoprim [From ] Allergy Intermediate Hives Verified 07/13/22 08:22 Consultations 07/13/22 14:14 Consult Hospitalist Routine Procedures Performed Operation Date: 07/13/22 09:30 Actual Procedures p Robotic Laparoscopic Left Adrenalectomy(Left) - Kyle Jay DO Hospital Course (1) Adrenal nodule: - Pt POD#1 s/p left adrenalectomy with Dr. Jay. - Doing well, progressing as expected. - Afebrile, vitals stable - normotensive this AM. - Lab work reviewed - creatinine 0.70, potassium 3.8, WBC 13.64, hemoglobin 11.7. - Pain control is adequate. - Tolerating regular diet. - Continue OOB ambulation. - Schulte out this AM, monitor for void. - Hospitalists following for medical management - appreciate recommendations. - Will plan to stop Eplerenone. Continue other BP medications upon discharge. Follow-up with PCP within 1 week. - Anticipate home later today if she continues to progress as expected. - Expected clinical course reviewed, all questions answered. Patient reassessed at 1200. She is voiding without difficulty after catheter removal. Pain is well controlled. She is ready for discharge to home today. Orders placed. Outpatient follow-ups in place. All questions answered. Total Time Total Time Spent Total Time Spent (In Minutes): 29 Discharge Plan Discharge Items Patient Disposition: Home - Self-Care Reason For Visit: LEFT ADRENAL MASS,FUNCTIONAL ADENOMA,HYPERALDOSTER Discharge Diagnosis: Left adrenal mass, functional adenoma, hyperaldosteronism Activity: Per Instructions section Lifting: No more than 10 pounds Bathing Comment: Okay to shower after discharge Sexual Activity: Wait until after follow-up appointment Exercise/Sports: Wait until after follow-up appointment Driving/Machine Use: No driving while taking prescription pain medication Non-emergency contact: Surgeon and Urologist Call non-emergency contact if: your pain is not controlled, you have a fever, your temperature is above 101, your wound has increased redness, your wound has increased drainage and your wound pain has increased Follow-up/Referrals: Tri Chamorro CRNP [Primary Care Provider] - Kyle Jay DO [Physician] - 08/01/22 10:00 am [facility],Nurse [FAKE FOR SCHEDULES] - 07/21/22 9:00 am Diet: Regular and Carb Consistent or DM2 Addtl Attending Provider Instructions: Please take all medications as prescribed and keep all follow-ups as scheduled. Please call our office at [phone] with any questions, concerns or need to reschedule appointments for any reason. We are happy to assist you. STOP Eplerenone. Continue your other blood pressure medications after discharge. Recommend follow-up with your PCP for hospital follow-up and BP check within 1 week. Recovering at home: We recommend having someone with you for the first few days after surgery to help care for you. It is okay to shower tomorrow. Please avoid swimming, bathing or using hot tub until incisions are well healed. Avoid driving until you are not requiring pain medication any further. Walk at least a few times a day. Increase your distance, as you feel able. Stairs in your home are okay. Please avoid strenuous or sexual activity until your follow-up. We recommend using stool softener (i.e. Colace) to prevent constipation and straining, especially the first two weeks post operatively. Call [facility] at [phone] if you experience: Chest pain or trouble breathing (call [phone] or go to the hospital). Fever of 101F or higher Symptoms of infection at incision site, including redness or swelling, warmth, or bad-smelling drainage If you have catheter, and you notice: o Bloody urine or drainage that is dark red or has large clots (Please remember a small amount of blood is normal) o No drainage from the catheter for more than 6 hours o The catheter comes out of your bladder Pain that is not controlled with medicines Pending Studies at Discharge: Yes (pathology) Stand-Alone Forms: My [facility], Smoking Cessation Medications and DC Order Prescriptions: New oxycodone-acetaminophen [Percocet] 5-325 mg tablet 1 tab PO TID PRN (Reason: pain) Qty: 10 0RF docusate sodium [Colace] 100 mg capsule 100 mg PO BID Qty: 60 0RF Rx Instructions: Take twice daily for 2 weeks, then as needed for constipation. Continued albuterol sulfate [Ventolin HFA] 90 mcg/actuation HFA aerosol inhaler 2 puff inhalation 6XD PRN (Reason: shortness of breath or wheezing) Qty: 8.5 5RF labetalol 200 mg tablet 200 mg PO BID Qty: 180 3RF Rx Instructions: Take 1 tablet twice a day clotrimazole-betamethasone 1-0.05 % cream 1 applic topical BID PRN (Reason: groin rash) Qty: 15 1RF fluticasone propionate [Flovent HFA] 110 mcg/actuation HFA aerosol inhaler 1 puff inhalation BID Qty: 12 5RF Rx Instructions: Rinse mouth after use. nystatin 100,000 unit/gram powder 1 applic topical TID PRN (Reason: itching) Qty: 60 3RF prenat.vits,zarina,[id number] Tablet 1 tab PO QAM paroxetine HCl [Paxil] 20 mg tablet 20 mg PO QAM esomeprazole magnesium [Nexium 24HR] 20 mg capsule,delayed release(DR/EC) 20 mg PO QAM Discontinued eplerenone [Inspra] 50 mg tablet 50 mg PO BID Discharge Orders: Discharge Order (Routine); Ordered 07/14/22 Ordered By: Corie Gandhi/Reji Patient Handouts: Prediabetes, 5 Steps for Eating Healthier Admission Data Admit Date/Time: 07/13/22 08:30 Attending Provider: Kyle Jay Admit Provider: Kyle Jay Primary Care Provider: Tri Chamorro Other Providers: Deonte Long ; Mar France ; Bro Grove ; Silvano Forrester ; Chema Fallon ; Jeff Forbes ; Ivan Mccracken ; Janette Mujica ; Debora Baum ; Terrence Hui ; Dayne Contreras ; Leida Levy ; Harvey Javier ; Aiyana Velázquez ; Roxie Brown ; Yan Jones ; Diomedes Negron ; Osvaldo Sharma ; Becka Echols ; Mar Montez ; Kyara Roy ; Phylicia Choudhury ; Russell Garrido ; Bro Cazares ; Abigail Roman ; Josiah Longo ; Rashaad Stewart ; Lori Guardado ; Tong Garcia ; Nicolas Brush ; Hanna Bain ; Darrion Guerra ; Naomi Winter ; Kayla Yoo ; Giovani Valladares ; Dulce Maria Lopez ; Stephani Mohamud ; Silvano Riggs Other Interventions: Discharge Summary Assessment (RN) Last Done: 07/14/22 13:24 Coding Level of Care Code 12240 IN/OBS DISCH 30 MIN/LESS Diagnoses Adrenal nodule E27.8
== END 2022-07-14 14:10 | disposition home or self-care (01) ==
LOC: ASU 07:54 → INTOOBSV 08:30 → 3E 08:30